=== PATIENT | male | born 1945 | race Caucasian/White ===

== ENCOUNTER 2017-02-26 08:53 | Inpatient (IN) | payer OTHER, MEDICAID ==
[~2017-02-26] VITALS: Ht 162.6 cm; Wt 65.3 kg
[~2017-02-26 08:53] MED LIST: ACET-2619 GT; DONE10TA10 PO; FOLI1TAB19 PO; MAGN400S60 PO; PANT40EC PO; SIMV10TA1 PO; TAMS0.4C96 PO; [UNRECOGNIZED DRUG - CODE] PO
--- NOTE | 2017-02-26 08:53 | NUR ---
Patient was BIBA and taken to bed 07 via gurney per EMS.
--- NOTE | 2017-02-26 08:58 | NUR ---
Dr. Lamas evaluating patient at bedside.
[2017-02-26] MEDS ORDERED: PANTOPRAZOLE 40 MG INJ VIAL IVP ONE (09:00)
[2017-02-26 09:01] VITALS: BP 119/65
--- NOTE | 2017-02-26 09:01 | NUR ---
72 yo male bib ems from [facility] for evaluation of coffee ground emesis on g tube feed, and dialysis awake and alert non verbal on arrival. AAOX4 ; LUNGS CLEAR BL; PATIENT STATES PAIN OF 0/10 AT THIS TIME; VSS; PATIENT POSITIONED FOR COMFORT; HOB ELEVATED; BEDRAILS UP X2; BED DOWN. ER MADE AWARE OF PT STATUS. Addendum: 02/26/17 at 1116 by MED1 PT HAS OLD SHUNT BOTH UPPER ARM, & SHUNT R THIGH.
--- NOTE | 2017-02-26 09:05 | NUR ---
OCEDURE WELL.PT HAS COOFEE GROUND FRONM G TUBE. LAVAGE G TUBE 500 CC UNTIL CLEAR. PT TOLERATED TX
[2017-02-26] MEDS ORDERED: VITA1TAB44 GT (09:16)
[2017-02-26] MEDS ORDERED: VITD1000 GT (09:16)
[2017-02-26] MEDS ORDERED: OMEP20TC10 GT (09:16)
--- NOTE | 2017-02-26 09:22 | NUR ---
LAB at bedside.
[2017-02-26] MEDS ORDERED: NACL 0.9% 500 ML IV ONE (09:35)
[2017-02-26 09:37] LABS: BASOPHILS % (AUTO) 0.3 % (0.0-2.0); EOSINOPHILS % (AUTO) 0.4 % (0.0-4.0); HEMATOCRIT 30.2 % (36-52); HEMOGLOBIN 10.3 g/dL (12.0-18.0); LYMPHOCYTES # (AUTO) 0.6 K/uL (2.0-11.5); LYMPHOCYTES % (AUTO) 5.4 % (20.5-51.1); MEAN CORPUSCULAR HEMOGLOBIN 33 pg (27-31); MEAN CORPUSCULAR HGB CONC 34 g/dL (33-37); MEAN CORPUSCULAR VOLUME 97 fL (80-94); MONOCYTES # (AUTO) 0.2 K/uL (0.8-1.0); NEUTROPHILS # (AUTO) 10.8 K/uL (1.8-7.7); PLATELET COUNT (AUTO) 257 K/uL (140-450); WHITE BLOOD COUNT (AUTO) 11.6 K/uL (4.8-10.8)
--- NOTE | 2017-02-26 09:46 | NUR ---
Patient taken to CT via jenelle izaguirre.
[2017-02-26 09:52] LABS: ALBUMIN 3.7 g/dL (3.4-5.0); AMYLASE 115 U/L (25-115); ANION GAP 13.1 (8-16); ASPARTATE AMINOTRANSFERASE 18 U/L (15-37); CARBON DIOXIDE 36.3 mmol/L (21-32); CHLORIDE 95 mmol/L (98-107); GLUCOSE 275 mg/dL (74-106); LIPASE 234 U/L (73-393); POTASSIUM 4.4 mmol/L (3.5-5.1); SODIUM SERUM 140 mmol/L (136-145); TOTAL BILIRUBIN 0.4 mg/dL (0.0-1.0); UREA NITROGEN, BLOOD 54 mg/dL (7-18)
--- NOTE | 2017-02-26 09:54 | NUR ---
Patient back from CT via [facility].
[2017-02-26 09:55] LABS: CREATININE 6.6 mg/dL (0.7-1.3)
[2017-02-26 09:59] LABS: NEUTROPHILS % (AUTO) 91.9 % (42.2-75.2)
--- NOTE | 2017-02-26 10:00 | NUR ---
STRAIT CATH NO URINE. NOTIFIED DR HUMPHREY.
[2017-02-26 10:01] LABS: PROTHROMBIN TIME 10.8 secs (10.8-13.4)
[2017-02-26] MEDS ORDERED: MORPHINE SULFATE 2 MG/ML SYR IVP PRN (10:50)
[2017-02-26] MEDS ORDERED: DOCUSATE SODIUM 100 MG GELCAP PO PRN (10:50)
[2017-02-26] MEDS ORDERED: ONDANSETRON 4 MG/2 ML VIAL IVP PRN (10:50)
[2017-02-26] MEDS ORDERED: HYDROcodone/APAP 5/325 MG 1 TAB TAB PO PRN (10:50)
[2017-02-26] MEDS ORDERED: ACETAMINOPHEN 325 MG TAB PO PRN (10:50)
[2017-02-26] MEDS ORDERED: HYDROcodone/APAP 5/325 MG 1 TAB TAB GT PRN (10:55)
[2017-02-26] MEDS ORDERED: ACETAMINOPHEN 325 MG TAB GT PRN (10:55)
--- NOTE | 2017-02-26 11:10 | NUR ---
Patient will be admitted to care of DR ARMENTA. Admited to TELE. Will go to room 116. Belongings list completed. Report to BJORN NICHOLSON.
--- NOTE | 2017-02-26 11:17 | NUR ---
RECEIVED TELEPHONE REPORT FROM ER NURSE EDNA. PT WILL GO TO ROOM 116. WILL GET ROOM READY AND AWAIT FOR PT ARRIVAL TO [facility].
[2017-02-26 11:24] LABS: ALBUMIN 3.7 g/dL (3.4-5.0); BILIRUBIN,DIRECT 0.1 mg/dL (0.0-0.3); FREE T4 (FREE THYROXINE) 1.12 ng/dL (0.76-1.46); MAGNESIUM 2.3 mg/dL (1.8-2.4); PHOSPHORUS 2.8 mg/dL (2.5-4.9); THYROID STIMULATING HORMONE 3.1 uIU/mL (0.34-3.74); TOTAL BILIRUBIN 0.4 mg/dL (0.0-1.0)
[2017-02-26] MEDS: NACL 0.9% 500 ML IV SCH (11:25)
[2017-02-26] MEDS ORDERED: DOCUSATE 100 MG/10 ML UDC PO PRN (11:40)
[2017-02-26] MEDS ORDERED: DEXTROSE 50% 50 ML SYR IVP PRN (11:40)
[2017-02-26] MEDS ORDERED: DOCUSATE 100 MG/10 ML UDC GT PRN (11:40)
[2017-02-26] MEDS ORDERED: ACETAMINOPHEN 650 MG/20.3 ML UDC GT PRN (11:55)
[2017-02-26 12:00] VITALS: BP 110/59
--- NOTE | 2017-02-26 12:00 | NUR ---
PT ARRIVED TO [facility] VIA GURNEY ACCOMPANIED BY RN AND TECH. TRANSFERRED PT TO BED. PT IS AWAKE AND ORIENTED. INTRODUCED SELF AND UPDATED BOARD. VS: BP 110/59 HR 84 RR 20 O2 SAT 98% O2 DELIVERY VIA NC 2L. TEMP 98.0. NO EMESIS NOTED. APPLIED ID BAND AND PUT PT ON TELE MONITOR. DR. CASTILLO CAME IN AND SAW PT IN ROOM. PT HAS NO COMPLAINTS AT THIS TIME WILL CONTINUE TO MONITOR.
[2017-02-26 16:00] VITALS: BP 123/64
--- NOTE | 2017-02-26 16:00 | NUR ---
CHECKED ON PT IN ROOM. PT RESTING IN BED. PT IS AAO X 4. CAN STATE OWN NAME. STATED THAT HE KNOWS HE IS AT [facility]. PT STATED THAT HE CAME FROM A [facility] IN [place] BUT FORGETS THE NAME OF THE PLACE. ABLE TO STATE THAT TODAY IS FRIDAY AND THE YEAR IS 2016. PT ALSO STATED THAT HE RECEIVED THE FLU VACCINE AND PNA VACCINE THIS YEAR. NO EMESIS NOTED, PT DENIES ANY PAIN. IV IS ON RIGHT HAND 22G NS @10ML/HR. SKIN IN INTACT. DRYNESS OF SKIN SEEN ON PT'S BACK AND FEET. PT HAS NO COMPLAINTS AT THIS TIME. WILL CONTINUE TO MONITOR.
[2017-02-26] MEDS: BLOOD GLUCOSE MONITORING 1 DEV DEV FS SCH ×2 (16:30→20:32)
--- NOTE | 2017-02-26 17:00 | NUR ---
PT HAS HD FISTULA ON RIGHT AND LEFT UPPER ARM. PER PT. STATED THAT RIGHT UPPER ARM IS NO GOOD AND THAT LEFT UPPER ARM IS WHERE HD IS ACCESSED AND GOOD SITE.
[2017-02-26] MEDS: METOCLOPRAMIDE 10 MG/10 ML SYRP UDC GT SCH (17:58)
[2017-02-26] MEDS: INSULIN LISPRO SLIDING SCALE 100 UNITS/ML VIAL SUBQ PRN (18:07)
--- NOTE | 2017-02-26 19:25 | NUR ---
ENDORSED PT TO SUPPLY OFFICER NURSE AT BEDSIDE FOR CONTINUITY OF CARE. PT IS AWAKE AND ORIENTED RESTING COMFORTABLY IN BED. PT IN STABLE CONDITION.
--- NOTE | 2017-02-26 19:26 | NUR ---
RECEIVED PATIENT REPORT AT BEDSIDE FROM MORNING NURSE. PATIENT IS AWAKE AND ALERT, RESTING COMFORTABLY IN BED. NO SIGNS AND SYMPTOMS OF DISTRESS NOTED. NO COMPLAINTS OF PAIN AT THIS TIME. PATIENT ON O2 2L VIA NC. FISTULA NOTED IN LEFT AND RIGHT UPPER ARM. PATIENT STATES THAT THE FISTULA ON RIGHT ARM IS NO GOOD AND THAT HEMODIALYSIS IS DONE ON LEFT ARM. G-TUBE IN PLACE. PICC LINE ON RIGHT LEG NOTED, WRAPPED IN GAUZE. BED IN LOWEST POSITION, SIDE RAILS UP AND CALL LIGHT WITHIN REACH. WILL CONTINUE TO MONITOR. Addendum: 02/26/17 at 2220 by Vladimir Negrete RN NO PICC LINE ON RIGHT LEG. IT IS ACCESS FOR HEMODIALYSIS ON RIGHT THIGH, WRAPPED IN GAUZE.
[2017-02-26 20:00] VITALS: BP 109/46
[2017-02-26] MEDS: PANTOPRAZOLE 40 MG INJ VIAL IVP SCH (20:26)
[2017-02-26] MEDS: SIMVASTATIN 10 MG TAB GT SCH (20:31)
--- NOTE | 2017-02-26 23:00 | NUR ---
CHECKED ON PATIENT, PATIENT IS ASLEEP. NO SIGNS AND SYMPTOMS OF DISTRESS NOTED. BED IN LOWEST POSITION, SIDE RAILS UP AND CALL LIGHT WITHIN REACH.
[2017-02-27] VITALS: BP 123/75
[2017-02-27 03:46] VITALS: BP 140/80
[2017-02-27] MEDS ORDERED: LANSOPRAZOLE 30 MG CAPDR GT SCH (06:30)
[2017-02-27] MEDS: BLOOD GLUCOSE MONITORING 1 DEV DEV FS SCH ×4 (06:30→21:22)
[2017-02-27] MEDS: METOCLOPRAMIDE 10 MG/10 ML SYRP UDC GT SCH ×3 (06:32→16:30)
[2017-02-27] MEDS: INSULIN LISPRO SLIDING SCALE 100 UNITS/ML VIAL SUBQ PRN ×3 (06:37→21:30)
[2017-02-27 06:45] LABS: BASOPHILS % (AUTO) 0.5 % (0.0-2.0); EOSINOPHILS # (AUTO) 0.1 K/uL (0-0.4); EOSINOPHILS % (AUTO) 0.9 % (0.0-4.0); HEMATOCRIT 28.2 % (36-52); HEMOGLOBIN 9.4 g/dL (12.0-18.0); LYMPHOCYTES # (AUTO) 1.4 K/uL (2.0-11.5); LYMPHOCYTES % (AUTO) 14.5 % (20.5-51.1); MEAN CORPUSCULAR HEMOGLOBIN 32 pg (27-31); MEAN CORPUSCULAR HGB CONC 33 g/dL (33-37); MEAN CORPUSCULAR VOLUME 97 fL (80-94); MONOCYTES # (AUTO) 0.6 K/uL (0.8-1.0); MONOCYTES % (AUTO) 5.9 % (1.7-9.3); NEUTROPHILS # (AUTO) 7.8 K/uL (1.8-7.7); NEUTROPHILS % (AUTO) 78.2 % (42.2-75.2); PLATELET COUNT (AUTO) 248 K/uL (140-450); RED CELL DISTRIBUTION WIDTH 12.5 % (11.6-13.7); WHITE BLOOD COUNT (AUTO) 9.9 K/uL (4.8-10.8)
[2017-02-27 07:24] LABS: ANION GAP 12.8 (8-16); CARBON DIOXIDE 34.4 mmol/L (21-32); CHLORIDE 98 mmol/L (98-107); GLUCOSE 193 mg/dL (74-106); POTASSIUM 4.2 mmol/L (3.5-5.1); SODIUM SERUM 141 mmol/L (136-145)
[2017-02-27 07:33] LABS: CREATININE 8.3 mg/dL (0.7-1.3); UREA NITROGEN, BLOOD 66 mg/dL (7-18)
--- NOTE | 2017-02-27 07:37 | NUR ---
PATIENT REPORT GIVEN TO MORNING NURSE. PATIENT IN STABLE CONDITION
--- NOTE | 2017-02-27 07:38 | NUR ---
RECEIVED REPORT FROM PER DIEM PHYSICAL THERAPIST ASSISTANT NURSE AT BEDSIDE FOR CONTINUITY OF CARE. PT IS AWAKE AND ORIENTED. DR. HITCHCOCK'S RESIDENTS CAME IN AND SAW PT. REPORTED CRITICAL LAB VALUE BUN 66 AND CREATININE 8.[address] ELY. DISCUSSED PLAN WITH PT. PT VERBALIZED UNDERSTANDING. PT IS RESTING IN BED RIGHT NOW. IV IS ON RIGHT HAND 22G NS@10ML/HR. NO COMPLAINTS AT THIS TIME WILL CONTINUE TO MONITOR.
[2017-02-27 08:00] VITALS: BP 119/54
[2017-02-27] MEDS: TAMSULOSIN 0.4 MG CAP GT SCH (08:02)
[2017-02-27] MEDS: CHOLECALCIFEROL 1,000 IU TAB GT SCH (08:02)
[2017-02-27] MEDS: VIT-B COMP/VIT-C/FOLIC ACID 1 TAB GT SCH (08:03)
[2017-02-27] MEDS: PANTOPRAZOLE 40 MG INJ VIAL IVP SCH ×2 (08:03→21:14)
[2017-02-27] MEDS: FOLIC ACID 1 MG TAB GT SCH (08:03)
[2017-02-27] MEDS ORDERED: PANTOPRAZOLE 40 MG TABEC PO SCH (09:00)
[2017-02-27 09:10] LABS: TRANSFERRIN 243 mg/dL (200-370)
--- NOTE | 2017-02-27 10:12 | NUR ---
CALLED SULLY MULLEN FOR DIALYSIS ORDER AND MADE AWARE.
[2017-02-27] MEDS: NACL 0.9% 500 ML IV SCH (11:25)
[2017-02-27 12:00] VITALS: BP 100/58
[2017-02-27] MEDS ORDERED: MIDAZOLAM 2 MG/2 ML VIAL ONE (12:02)
[2017-02-27] MEDS ORDERED: diphenhydrAMINE 50 MG/ML VIAL ONE (12:02)
[2017-02-27] MEDS ORDERED: fentaNYL 0.05 MG/ML VIAL ONE (12:02)
--- NOTE | 2017-02-27 13:40 | NUR ---
PT ARRIVED TO UNIT FROM GI LAB ACCOMPANIED BY RNS. PT VS: TEMP 97.1 BP 100/58 HR 90 O2 SAT 97% ON ROOM AIR RR 18. PT IN STABLE CONDITION.
[2017-02-27] MEDS ORDERED: fentaNYL 0.05 MG/ML VIAL IVP ONE (14:00)
[2017-02-27] MEDS ORDERED: diphenhydrAMINE 50 MG/ML VIAL IVP ONE (14:00)
[2017-02-27] MEDS ORDERED: MIDAZOLAM 2 MG/2 ML VIAL IVP ONE (14:00)
[2017-02-27 16:00] VITALS: BP 122/65
--- NOTE | 2017-02-27 17:00 | NUR ---
CALLED DR. DUTTA AND REPORTED THAT HEMODIALYSIS NURSE UNABLE TO REACH ORDER OF 2L DIALYSIS. STATED OK FOR 1L OF FLUID. PT IS IN ROOM GETTING HD DONE BY NURSE.
--- NOTE | 2017-02-27 19:00 | NUR ---
HEMODIALYSIS DONE. REPORT GIVEN BY HD NURSE ONLY 507ML DIALYSIS DONE. PT IS RESTING COMFORTABLY IN BED.
--- NOTE | 2017-02-27 19:10 | NUR ---
ENDORSED PT TO MACHINE PRECISION ENGRAVER NURSE AT BEDSIDE FOR CONTINUITY OF CARE. PT IS AWAKE AND ORIENTED AND IN STABLE CONDITION.
--- NOTE | 2017-02-27 19:11 | NUR ---
RECEIVED PATIENT REPORT AT BEDSIDE FROM MORNING NURSE. PATIENT IS AWAKE AND ALERT, RESTING COMFORTABLY IN BED. NO SIGNS AND SYMPTOMS OF DISTRESS NOTED. NO COMPLAINTS OF PAIN AT THIS TIME. PATIENT ON O2 2L VIA NC. FISTULA NOTED IN LEFT AND RIGHT UPPER ARM. G-TUBE IN PLACE. DIALYSIS ACCESS NOTED ON RIGHT THIGH, WRAPPED IN GAUZE. BED IN LOWEST POSITION, SIDE RAILS UP AND CALL LIGHT WITHIN REACH. WILL CONTINUE TO MONITOR.
[2017-02-27 20:00] VITALS: BP 107/57
[2017-02-27] MEDS: SIMVASTATIN 10 MG TAB GT SCH (21:14)
--- NOTE | 2017-02-27 22:27 | NUR ---
RECEIVED HEART RHYTHM STRIP FROM DRAPERY SUPERVISOR OF PATIENT'S STRIP READING 2ND DEGREE BLOCK, GELY 2. NOTIFIED DR. TOPETE ABOUT PATIENT'S HEART RHYTHM. PUT IN ORDERS Addendum: 02/28/17 at 0124 by Vladimir Negrete RN DRAPERY SUPERVISOR ELE INFORMED ME THAT IT WAS ACTUALLY GELY I NOT GELY II
--- NOTE | 2017-02-27 23:00 | NUR ---
EKG DONE. RESULTS SHOW SR WITH 2ND DEGREE AV BLOCK (MOBITZ 1) WITH 2:[address] TOPETE NOTIFIED OF RESULTS
[2017-02-28] VITALS: BP 128/56
--- NOTE | 2017-02-28 | NUR ---
CHECKED ON PATIENT. PATIENT IS ASLEEP IN BED. NO SIGNS AND SYMPTOMS OF DISTRESS NOTED. BREATHING EVEN AND UNLABORED. BED IN LOWEST POSITION, SIDE RAILS UP AND CALL LIGHT WITHIN REACH
[2017-02-28 04:00] VITALS: BP 104/54
[2017-02-28 06:15] LABS: FOLIC ACID > 20.00 ng/mL (>3.0)
[2017-02-28 06:16] LABS: BASOPHILS # (AUTO) 0.1 K/uL (0.00-0.22); BASOPHILS % (AUTO) 0.9 % (0.0-2.0); EOSINOPHILS # (AUTO) 0.1 K/uL (0-0.4); EOSINOPHILS % (AUTO) 1.6 % (0.0-4.0); HEMATOCRIT 24.7 % (36-52); HEMOGLOBIN 8.5 g/dL (12.0-18.0); LYMPHOCYTES # (AUTO) 1.6 K/uL (2.0-11.5); LYMPHOCYTES % (AUTO) 22.5 % (20.5-51.1); MEAN CORPUSCULAR HEMOGLOBIN 34 pg (27-31); MEAN CORPUSCULAR HGB CONC 35 g/dL (33-37); MEAN CORPUSCULAR VOLUME 97 fL (80-94); MONOCYTES # (AUTO) 0.6 K/uL (0.8-1.0); MONOCYTES % (AUTO) 8.5 % (1.7-9.3); NEUTROPHILS # (AUTO) 4.7 K/uL (1.8-7.7); NEUTROPHILS % (AUTO) 66.5 % (42.2-75.2); PLATELET COUNT (AUTO) 204 K/uL (140-450); RED BLOOD CELL COUNT(AUTO) 2.54 MIL/uL (4.20-6.10); RED CELL DISTRIBUTION WIDTH 12.6 % (11.6-13.7); WHITE BLOOD COUNT (AUTO) 7.1 K/uL (4.8-10.8)
[2017-02-28] MEDS: BLOOD GLUCOSE MONITORING 1 DEV DEV FS SCH ×3 (06:33→16:42)
[2017-02-28] MEDS: METOCLOPRAMIDE 10 MG/10 ML SYRP UDC GT SCH ×3 (06:40→16:02)
[2017-02-28 06:58] LABS: ANION GAP 11.8 (8-16); CARBON DIOXIDE 31.6 mmol/L (21-32); CHLORIDE 104 mmol/L (98-107); GLUCOSE 134 mg/dL (74-106); POTASSIUM 3.4 mmol/L (3.5-5.1); SODIUM SERUM 144 mmol/L (136-145); UREA NITROGEN, BLOOD 31 mg/dL (7-18)
--- NOTE | 2017-02-28 07:22 | NUR ---
RECEIVED REPORT FROM PM NURSE AT BEDSIDE, PT ALERT AWAKE AND ORIENTED. NO SIGN OF SYMPTOMS OF DISTRESS NOTED, NO COMPLAIN OF PAIN AT THIS TIME. WILL CONTINUE TO MONITOR.
--- NOTE | 2017-02-28 07:22 | NUR ---
REPORT GIVEN AT BEDSIDE TO MORNING NURSE. PATIENT IN STABLE CONDITION
[2017-02-28 07:26] LABS: CREATININE 5.4 mg/dL (0.7-1.3)
[2017-02-28 07:59] VITALS: BP 109/54
[2017-02-28] MEDS: VIT-B COMP/VIT-C/FOLIC ACID 1 TAB GT SCH (08:50)
[2017-02-28] MEDS: PANTOPRAZOLE 40 MG INJ VIAL IVP SCH (08:50)
[2017-02-28] MEDS: TAMSULOSIN 0.4 MG CAP GT SCH (08:50)
[2017-02-28] MEDS: FOLIC ACID 1 MG TAB GT SCH (08:51)
[2017-02-28] MEDS: CHOLECALCIFEROL 1,000 IU TAB GT SCH (08:51)
--- NOTE | 2017-02-28 09:15 | NUR ---
PT RESTING, NO DISTRESS NOTED, CALL LIGHT WITHIN REACH, WILL CONTINUE TO MONITOR.
--- NOTE | 2017-02-28 11:30 | NUR ---
PT RESTING, NO DISTRESS NOTED, NO SIGN AND SYMPTOM OF DISTRESS, CALL LIGHT WITHIN REACH.
[2017-02-28] MEDS ORDERED: METO-485 PO (11:57)
[2017-02-28] MEDS ORDERED: OMEP20TC10 PO (11:57)
[2017-02-28 12:00] VITALS: BP 147/100
[2017-02-28] MEDS: INSULIN LISPRO SLIDING SCALE 100 UNITS/ML VIAL SUBQ PRN (12:26)
[2017-02-28] MEDS: NACL 0.9% 500 ML IV SCH (12:28)
--- NOTE | 2017-02-28 13:25 | NUR ---
CM NOTE SPOKE WITH AUSTIN OF [facility] PH# [phone] AND SHE SAID PATIENT CAN GO BACK TO [address] WHEN DISCHARGED, DR. MICHAEL THORNTON IS PATIENT'S DOCTOR THERE, NUMBER TO CALL FOR REPORT PH# [phone]. SPOKE WITH GLENN TO SET UP PATIENT TRANSPORT [facility] 1730 TODAY BY MARY GOING TO [facility] [address]. NURSE ERYN LAYNE. Addendum: 02/28/17 at 1358 by Valerie Sutherland CM CHARGE NURSE MODESTO LAYNE
[2017-02-28] MEDS ORDERED: METO-485 GT (14:25)
[2017-02-28] MEDS ORDERED: OMEP20TC10 GT (14:25)
[2017-02-28] MEDS ORDERED: POTASSIUM CHLORIDE 10 MEQ TABER PO SCH (14:30)
--- NOTE | 2017-02-28 14:50 | NUR ---
PT RESTING, NO DISTRESS NOTED, CALL LIGHT WITHIN REACH, WILL CONTINUE TO MONITOR
--- NOTE | 2017-02-28 15:30 | NUR ---
GAVE REPORT TO [facility] NURSE DMITRY
[2017-02-28] MEDS ORDERED: CHLO118S2 TP (15:37)
[2017-02-28] MEDS ORDERED: BACTO TP (15:37)
[2017-02-28 16:00] VITALS: BP 110/89
--- NOTE | 2017-02-28 16:02 | NUR ---
MEDICATION GIVEN PER DR OR PO, PT TOLERATED WELL, CALL LIGHT WITHIN REACH, WILL CONTINUE TO MONITOR. Addendum: 02/28/17 at 1657 by Wendy Reilly RN PER MD DECKER
[2017-02-28] MEDS ORDERED: CHLORHEXADINE GLUC 2% CLOTH TP SCH (16:30)
[2017-02-28] MEDS ORDERED: MUPIROCIN 2% OINT 22 GM TUBE TP SCH (17:00)
--- NOTE | 2017-02-28 18:41 | NUR ---
PT HAD BM EMMY CARE GIVEN, PT STABLE
--- NOTE | 2017-02-28 18:58 | NUR ---
DISCHARGE INSTRUCTION GIVEN, PT TRANSFERRED [facility] AMBUL[facility], PT PICKED UP BY [facility], IV TAKEN OFF, CATHETER INTACT, WRISTBAND TAKEN OFF, PT STABLE. PT HAS ALL BELONGING AND DISCHARGE PAPERS.
== END 2017-02-28 19:02 | disposition home or self-care (01) | DRG 391 ==
LOC: MED 08:53 → MTU 11:02
PROVIDERS: ADMIT Student in an Organized Health Care Education/Training Program; ATTEND Student in an Organized Health Care Education/Training Program
PROC: 0D758ZZ Dilation of Esophagus, Via Natural or Artificial Opening Endoscopic (ICD-10-PCS; principal; 2017-02-27 12:30)
DX: K22.2 Esophageal obstruction (principal); N17.0 Acute kidney failure with tubular necrosis; I12.0 Hypertensive chronic kidney disease with stage 5 chronic kidney disease or end stage renal disease; E11.22 Type 2 diabetes mellitus with diabetic chronic kidney disease; I44.1 Atrioventricular block, second degree; N18.6 End stage renal disease; K92.2 Gastrointestinal hemorrhage, unspecified; E11.51 Type 2 diabetes mellitus with diabetic peripheral angiopathy without gangrene; K21.0 Gastro-esophageal reflux disease with esophagitis; N40.0 Benign prostatic hyperplasia without lower urinary tract symptoms; E87.6 Hypokalemia; E11.65 Type 2 diabetes mellitus with hyperglycemia; D63.1 Anemia in chronic kidney disease; G30.9 Alzheimer's disease, unspecified; F02.80 Dementia in other diseases classified elsewhere, unspecified severity, without behavioral disturbance, psychotic disturbance, mood disturbance, and anxiety; R13.10 Dysphagia, unspecified; D64.9 Anemia, unspecified; E78.5 Hyperlipidemia, unspecified; F32.9 Major depressive disorder, single episode, unspecified; K80.20 Calculus of gallbladder without cholecystitis without obstruction; Z90.49 Acquired absence of other specified parts of digestive tract; Z99.2 Dependence on renal dialysis; Z93.1 Gastrostomy status
CPT/HCPCS: 36415; 80048; 80053; 80076; 82140; 82150; 82607; 82746; 82948; 83036; 83540; 83615; 83690; 83735; 83880; 84100; 84439; 84443; 84484; 85025; 85045; 85610; 85730; 86886; 86900; 86901; 87081; 90935; 93005; 93925; 93970; 96361; 96374; 99285; C1727; C1758; C9113; J1200; J1815; J2250; J3010; J7030; J8597; Q0092

== ENCOUNTER 2017-06-09 17:50 | Inpatient (IN) | payer OTHER, MEDICAID ==
[~2017-06-09] VITALS: Ht 165.1 cm; Wt 68.0 kg
[~2017-06-09 17:50] MED LIST changes: +BACTO TP; +CHLO118S2 TP; -DONE10TA10 PO; +METO-485 GT; +OMEP20TC10 GT; -PANT40EC PO; +VITA1TAB44 GT; +VITD1000 GT; -[UNRECOGNIZED DRUG - CODE] PO
[2017-06-09 17:51] VITALS: BP 99/73
--- NOTE | 2017-06-09 18:05 | NUR ---
PATIENT PRESENTS TO ED WITH LEFT SHOULDER MASS X "YRS" . BROUGHT IN BY EMS FROM [facility] FOR CT OF SHOULDER . DENIES N/V/D; SKIN IS PINK/WARM/DRY; AAOX4 WITH EVEN AND STEADY GAIT; LUNGS CLEAR BL; HR EVEN AND REGULAR; PT DENIES ANY FEVER, CP, SOB, OR COUGH AT THIS TIME; PATIENT STATES PAIN OF 0/10 AT THIS TIME; VSS; PATIENT POSITIONED FOR COMFORT; HOB ELEVATED; BEDRAILS UP X2; BED DOWN. ER MD MADE AWARE OF PT STATUS.
[2017-06-09] MEDS ORDERED: DOCU-299 PO (18:20)
[2017-06-09] MEDS ORDERED: DONE10TA10 PO (18:20)
[2017-06-09] MEDS ORDERED: FOLI1TAB89 PO (18:20)
--- NOTE | 2017-06-09 19:50 | NUR ---
PT RESTING IN BED AT THIS TIME. HOB ELEVATED. A&OX4. VSS. NO C/O PAIN OR RESPIRATORY DISTRESS. VERBAL AND ABLE TO MAKE NEEDS KNOWN. PT PLACED IN POC. MD AWARE. CONTINUE TO MONITOR.
--- NOTE | 2017-06-09 20:11 | NUR ---
PT CONTINUES TO REST COFORTABLY. ORIENTED TO NAME AND . HR VARIATION BETWEEN 53 AND 76. 12 LEAD ECG COMPLETED. MD NOTIFIED. CONTINUE TO MONITOR.
[2017-06-09 20:44] LABS: BASOPHILS # (AUTO) 0.1 K/uL (0.00-0.22); EOSINOPHILS # (AUTO) 0.4 K/uL (0-0.4); EOSINOPHILS % (AUTO) 6.2 % (0.0-4.0); HEMOGLOBIN 11.1 g/dL (12.0-18.0); LYMPHOCYTES # (AUTO) 1.4 K/uL (2.0-11.5); LYMPHOCYTES % (AUTO) 19.6 % (20.5-51.1); MEAN CORPUSCULAR HEMOGLOBIN 32 pg (27-31); MEAN CORPUSCULAR HGB CONC 34 g/dL (33-37); MEAN CORPUSCULAR VOLUME 94 fL (80-94); MONOCYTES # (AUTO) 0.5 K/uL (0.8-1.0); MONOCYTES % (AUTO) 6.4 % (1.7-9.3); NEUTROPHILS # (AUTO) 4.7 K/uL (1.8-7.7); NEUTROPHILS % (AUTO) 66.8 % (42.2-75.2); PLATELET COUNT (AUTO) 287 K/uL (140-450); RED BLOOD CELL COUNT(AUTO) 3.51 MIL/uL (4.20-6.10); RED CELL DISTRIBUTION WIDTH 13.7 % (11.6-13.7); WHITE BLOOD COUNT (AUTO) 7.1 K/uL (4.8-10.8)
[2017-06-09 20:54] LABS: ANION GAP 13.7 (8-16); CHLORIDE 100 mmol/L (98-107); GLUCOSE 110 mg/dL (74-106); POTASSIUM 4.7 mmol/L (3.5-5.1); SODIUM SERUM 141 mmol/L (136-145); UREA NITROGEN, BLOOD 52 mg/dL (7-18)
[2017-06-09 20:58] LABS: CREATININE 9.1 mg/dL (0.7-1.3)
[2017-06-09 21:00] LABS: ALBUMIN 3.4 g/dL (3.4-5.0); ASPARTATE AMINOTRANSFERASE 19 U/L (15-37); TOTAL BILIRUBIN 0.3 mg/dL (0.0-1.0)
[2017-06-09 21:14] LABS: PROTHROMBIN TIME 10.4 secs (10.8-13.4)
[2017-06-09] MEDS ORDERED: ONDANSETRON 4 MG/2 ML VIAL IVP PRN (21:15)
[2017-06-09] MEDS ORDERED: HYDROcodone/APAP 7.5/325 MG 1 TAB PO PRN (21:15)
[2017-06-09] MEDS ORDERED: ACETAMINOPHEN 325 MG TAB PO PRN (21:15)
--- NOTE | 2017-06-09 21:43 | NUR ---
PT IN BED RESITING COMFORTABLY IN POC. PREPOSITIONED IN BED. HOB ELEVATED. PT DENIES CHEST PAIN, SOB, OR OTHER DISTRESSS. VSS STABLE AT THIS TIME. CONTINUE TO MONITOR.
[2017-06-09 22:20] LABS: CHOL/HDL RATIO 2.5 (1-4.5); FREE T4 (FREE THYROXINE) 1.05 ng/dL (0.76-1.46); MAGNESIUM 2.4 mg/dL (1.8-2.4); PHOSPHORUS 5.3 mg/dL (2.5-4.9); THYROID STIMULATING HORMONE 1.97 uIU/mL (0.34-3.74)
--- NOTE | 2017-06-09 22:50 | NUR ---
UPON ADMISION TO ROOM 106A TELE, PT HAD IV PLACED IN RIGHT AC. IV FLUSHED AND PATENT
[2017-06-09 23:00] VITALS: BP 111/47
--- NOTE | 2017-06-09 23:00 | NUR ---
RECEIVED PT FROM ER VIA MARY PT IS AAAOX2 FOLLOW COMMANDS PT VERBALIZED UNABLE TO WALK BLE WEAKNESS LEFT SHOULDER A MASS 10 CM ROUND SOFT TISSUE SCAR ON SACRUM, G TUBE IN PLACE ZERO RESIFUAL ON TELEMETRY SR/SB SECOND BLOCK, HL ON RT AC GAUGE 22 PT IS ORIENTED TO THE FLOOR CALL LIGHT WITHIN REACH INITIAL ASSESSMENT DONE.
--- NOTE | 2017-06-09 23:59 | NUR ---
Patient to be transferred to ROOM 106A TELE. Is being transferred due to LEFT SHOULDER MASS. ADMITTING PHYSICIAN SANDRITA. ER physician has signed transfer form. Patient or responsible republican has agreed to transfer and signed form. Patient belongings inventoried and will be sent with patient. Copy of nursing notes, lab reports, EKG, Physicians Orders and X-rays to be sent with patient. PT TANSFERED WITH VSS.
[2017-06-10] VITALS: BP 113/50
[2017-06-10] MEDS ORDERED: ECOTRIN 81 MG TABEC PO SCH (00:15)
[2017-06-10] MEDS ORDERED: INSULIN LISPRO SLIDING SCALE 100 UNITS/ML VIAL SUBQ PRN (00:15)
[2017-06-10] MEDS ORDERED: DEXTROSE 50% 50 ML SYR IVP PRN (00:15)
[2017-06-10] MEDS: FAMOTIDINE 20 MG/2 ML VIAL IV SCH ×2 (00:56→23:51)
--- NOTE | 2017-06-10 02:00 | NUR ---
PT SLEEPING WELL NOT DISTRESS NOTED REPOSITIONED Q2H
--- NOTE | 2017-06-10 03:40 | NUR ---
PT ON TELEMETRY SB SECOND DEGREE AV BLOCK DENIES ANY PAIN, REPOSITIONED Q2H
[2017-06-10 04:00] VITALS: BP 117/43
--- NOTE | 2017-06-10 05:03 | NUR ---
PT RESTING ON BED NOT DISTRESS NOTED ON TELEMETRY SB SECOND DEGREE AV BLOCK,REPOSITIONED Q2H
[2017-06-10] MEDS: METOCLOPRAMIDE 10 MG/10 ML SYRP UDC GT SCH ×2 (05:48→16:10)
[2017-06-10] MEDS: BLOOD GLUCOSE MONITORING 1 DEV DEV FS SCH ×4 (06:48→21:52)
--- NOTE | 2017-06-10 06:52 | NUR ---
PT AAOX2 COOPERATIVE NOT DISTRESS NOTED PT WILL BE ENDORSED TO DAY SHIFT NURSE FOR CONTINUITY OF CARE
--- NOTE | 2017-06-10 07:26 | NUR ---
RECEIVED PT IN BED. AWAKE. ALERT ORIENTEDX2. NO SOB NOTED. DENIES ANY PAIN OR DISCOMFORT AT THIS TIME. SAFETY PRECAUTION IN PLACE. CALL LIGHT WITHIN REACH.PT BEDBOUND.
[2017-06-10] MEDS ORDERED: METOCLOPRAMIDE 10 MG/10 ML SYRP UDC GT SCH (07:30)
[2017-06-10 07:31] LABS: BASOPHILS % (AUTO) 0.7 % (0.0-2.0); EOSINOPHILS # (AUTO) 0.5 K/uL (0-0.4); EOSINOPHILS % (AUTO) 6.8 % (0.0-4.0); HEMATOCRIT 31.9 % (36-52); HEMOGLOBIN 10.8 g/dL (12.0-18.0); LYMPHOCYTES # (AUTO) 1.6 K/uL (2.0-11.5); LYMPHOCYTES % (AUTO) 22.9 % (20.5-51.1); MEAN CORPUSCULAR HEMOGLOBIN 32 pg (27-31); MEAN CORPUSCULAR HGB CONC 34 g/dL (33-37); MEAN CORPUSCULAR VOLUME 94 fL (80-94); MONOCYTES # (AUTO) 0.5 K/uL (0.8-1.0); MONOCYTES % (AUTO) 7.4 % (1.7-9.3); NEUTROPHILS # (AUTO) 4.2 K/uL (1.8-7.7); NEUTROPHILS % (AUTO) 62.2 % (42.2-75.2); PLATELET COUNT (AUTO) 253 K/uL (140-450); RED BLOOD CELL COUNT(AUTO) 3.39 MIL/uL (4.20-6.10); RED CELL DISTRIBUTION WIDTH 13.8 % (11.6-13.7); WHITE BLOOD COUNT (AUTO) 6.8 K/uL (4.8-10.8)
[2017-06-10 07:55] VITALS: BP 123/63
--- NOTE | 2017-06-10 08:30 | NUR ---
DR. ELY MADE AWARE OF LATEST BLOOD SUGAR AND PT ON NPO EXCEPT MED WITH NEW ORDERS MADE AND CARRIED OUT.
[2017-06-10] MEDS ORDERED: DEXTROSE 50% 50 ML SYR IVP SCH (08:49)
[2017-06-10 08:57] LABS: CARBON DIOXIDE 31.5 mmol/L (21-32); CHLORIDE 101 mmol/L (98-107); GLUCOSE 104 mg/dL (74-106); POTASSIUM 4.5 mmol/L (3.5-5.1); SODIUM SERUM 142 mmol/L (136-145); UREA NITROGEN, BLOOD 55 mg/dL (7-18)
[2017-06-10] MEDS ORDERED: FOLIC ACID 1 MG TAB PO SCH (09:00)
[2017-06-10] MEDS: VIT-B COMP/VIT-C/FOLIC ACID 1 TAB GT SCH (09:15)
[2017-06-10] MEDS: FOLIC ACID 1 MG TAB PO SCH ×2 (09:15→21:53)
[2017-06-10] MEDS: TAMSULOSIN 0.4 MG CAP PO SCH (09:15)
[2017-06-10] MEDS: DOCUSATE SODIUM 100 MG GELCAP PO SCH ×2 (09:15→21:53)
[2017-06-10] MEDS: CHOLECALCIFEROL 1,000 IU TAB GT SCH (09:15)
[2017-06-10 09:19] LABS: CREATININE 9.5 mg/dL (0.7-1.3)
[2017-06-10 09:21] LABS: MAGNESIUM 2.4 mg/dL (1.8-2.4); PHOSPHORUS 5.1 mg/dL (2.5-4.9)
--- NOTE | 2017-06-10 09:21 | NUR ---
PATIENT HAS BEEN SCREENED AND CATEGORIZED HIGH NUTRITION RISK. PATIENT WILL BE SEEN WITHIN 1-2 DAYS OF ADMISSION. 06/09/17-06/10/[address]
--- NOTE | 2017-06-10 09:27 | NUR ---
CALLED [facility] REGARDING DIALYSIS ORDER, AND MADE AWARE.
[2017-06-10 12:00] VITALS: BP_SYST 130; BP_SYST 132; BP_DIAS 52; BP_DIAS 77
--- NOTE | 2017-06-10 14:33 | NUR ---
PLEASE REFER TO NUTRITION ASSESSMENT UNDER CARE ACTIVITY FOR ESTIMATED NUTRITIONAL NEEDS. 1.TO CONTINUE NPO STATUS UNTIL MEDICALL APPROPRIATE TO RESUME TUBE FEED/PO INTAKE. 2.ADVANCE DIET TOLERATED TO PREVIOUS DIET OF PUREE/TUBE FEED. RD TO FOLLOW-UP IN 2-3 DAYS PATIENT IS HIGH RISK. TESHA HERNANDEZ RD
--- NOTE | 2017-06-10 15:10 | NUR ---
SULLY, DIALYSIS NURSE, CAME TO SEE PT FOR THE DIALYSIS PROCEDURE. PT NO SOB NOTED. DENIES ANY PAIN OR DISCOMFORT AT THIS TIME.
[2017-06-10] MEDS ORDERED: CALCIUM ACETATE 667 MG TAB PO SCH (15:29)
--- NOTE | 2017-06-10 15:49 | NUR ---
SPECIMEN FOR URINE CULTURE NOT OBTAINED DUE TO PT ON DIALYSIS AND THERE IS NO URINE OUTPUT. DR. ELY MADE AWARE.
[2017-06-10 16:00] VITALS: BP 80/51
--- NOTE | 2017-06-10 18:07 | NUR ---
DIALYSIS JUST FINISHED WITH 0 OUTPUT DUE TO PT'S BLOOD PRESSURE DROPPING. VITAL SIGNS TAKEN AND RECORDED.
[2017-06-10 18:08] VITALS: BP 91/58
--- NOTE | 2017-06-10 18:21 | NUR ---
PT KEPT CLEAN, DRY AND COMFORTABLE, NEEDS ATTENDED. WILL ENDORSE TO NEXT SHIFT. PT ON STABLE CONDITION. TOLERATED HIS RENAL DIET WELL. NO SOB NOTED. DENIES ANY PAIN OR DISCOMFORT AT THIS TIME.
--- NOTE | 2017-06-10 19:00 | NUR ---
PT RESTING ON BED S/P DIALYSIS ON RT FEMORAL ZERO OUTPUT ACCORDING TO THE REPORT ON TELEMETRY SR 1 AV BLOCK POOR ORAL TOLERATION G TUBE PATENT ZERO RESIDUAL HL ON RT AC PATENT INITIAL ASSESSMENT DONE
[2017-06-10] MEDS ORDERED: SIMVASTATIN 10 MG TAB PO SCH (21:00)
[2017-06-10] MEDS ORDERED: DONEPEZIL 10 MG TAB PO SCH (21:00)
--- NOTE | 2017-06-10 22:00 | NUR ---
SPONGE BATH GIVEN LINEN CHANGED PT IS NOT TOLERATING WELL ORAL FLUID PT IS TRANFER TO MED SURG
[2017-06-11] VITALS: BP 135/69
--- NOTE | 2017-06-11 01:15 | NUR ---
PT REPOSITIONED AND NOT DISTRESS NOTED PT GETTING SLEEP
[2017-06-11 04:00] VITALS: BP 112/65
--- NOTE | 2017-06-11 04:00 | NUR ---
SPONGE BATH GIVEN LINEN CHANGED REPOSITIONED Q2H NOT DISTRESS NOTED
[2017-06-11] MEDS: METOCLOPRAMIDE 10 MG/10 ML SYRP UDC GT SCH ×2 (05:56→16:21)
[2017-06-11] MEDS: BLOOD GLUCOSE MONITORING 1 DEV DEV FS SCH ×3 (06:02→16:21)
--- NOTE | 2017-06-11 07:00 | NUR ---
PT AOX2 COOPERATIVE FOLLOW COMMANDS NOT DISTRESS NOTED ENDORSED TO DAY SHIFT NURSE MEGHAN FOR CONTINUITY OF CARE
[2017-06-11 07:08] LABS: BASOPHILS # (AUTO) 0.1 K/uL (0.00-0.22); BASOPHILS % (AUTO) 0.7 % (0.0-2.0); EOSINOPHILS # (AUTO) 0.3 K/uL (0-0.4); EOSINOPHILS % (AUTO) 3.7 % (0.0-4.0); HEMATOCRIT 32.5 % (36-52); HEMOGLOBIN 10.9 g/dL (12.0-18.0); LYMPHOCYTES # (AUTO) 1.3 K/uL (2.0-11.5); LYMPHOCYTES % (AUTO) 18.6 % (20.5-51.1); MEAN CORPUSCULAR HEMOGLOBIN 32 pg (27-31); MEAN CORPUSCULAR HGB CONC 34 g/dL (33-37); MEAN CORPUSCULAR VOLUME 95 fL (80-94); MONOCYTES # (AUTO) 0.5 K/uL (0.8-1.0); MONOCYTES % (AUTO) 7.3 % (1.7-9.3); NEUTROPHILS % (AUTO) 69.7 % (42.2-75.2); PLATELET COUNT (AUTO) 263 K/uL (140-450); RED BLOOD CELL COUNT(AUTO) 3.42 MIL/uL (4.20-6.10); RED CELL DISTRIBUTION WIDTH 13.8 % (11.6-13.7); WHITE BLOOD COUNT (AUTO) 7.2 K/uL (4.8-10.8)
--- NOTE | 2017-06-11 07:20 | NUR ---
ASSUMED CONTINUITY OF CARE. NO SIGNS AND SYMPTOMS OF ACUTE DISTRESS NOTICED. INITIAL ASSESSMENT DONE. RE-ORIENTED TO EVENTS AND SURROUNDINGS. HOB ELEVATED. EXPLAINED DIAGNOSIS, PLAN OF CARE, PAIN MANAGEMENT TEACHING, CONTACT ISOLATION PRECAUTION, USE OF CALL LIGHT/BED/TV/BATHROOM. VERBALIZED UNDERSTANDING. FALL PRECAUTION AND CONTACT ISOLATION PRECAUTION APPLIED. CALL LIGHT WITHIN REACH.
[2017-06-11 07:46] LABS: ANION GAP 15.3 (8-16); CARBON DIOXIDE 29.9 mmol/L (21-32); CHLORIDE 103 mmol/L (98-107); GLUCOSE 102 mg/dL (74-106); POTASSIUM 4.2 mmol/L (3.5-5.1); SODIUM SERUM 144 mmol/L (136-145); UREA NITROGEN, BLOOD 33 mg/dL (7-18)
[2017-06-11 07:51] LABS: CREATININE 7.2 mg/dL (0.7-1.3)
[2017-06-11 07:56] LABS: PHOSPHORUS 4.3 mg/dL (2.5-4.9)
[2017-06-11 08:00] VITALS: BP 124/55
--- NOTE | 2017-06-11 08:00 | NUR ---
Patient's Plan of Care was discussed and reviewed with PLANT ENGINEERING MANAGER: STANTON, WILL CONTINUE WITH CURRENT PLAN OF CARE
[2017-06-11] MEDS: TAMSULOSIN 0.4 MG CAP PO SCH (08:37)
[2017-06-11] MEDS: CHOLECALCIFEROL 1,000 IU TAB GT SCH (08:37)
[2017-06-11] MEDS: FOLIC ACID 1 MG TAB PO SCH (08:38)
[2017-06-11] MEDS: DOCUSATE SODIUM 100 MG GELCAP PO SCH (08:38)
[2017-06-11] MEDS: VIT-B COMP/VIT-C/FOLIC ACID 1 TAB GT SCH (08:38)
--- NOTE | 2017-06-11 11:15 | NUR ---
I attempted to contact Patient's sister Sarah Champion at to discuss and confirm patient's information. No response and I left a voice mail MGS requesting a call back.
--- NOTE | 2017-06-11 11:28 | NUR ---
COMPUTER EDUCATION TEACHER WENT INSIDE PT. ROOM AND SPOKE TO PT..
--- NOTE | 2017-06-11 11:43 | NUR ---
DR. VOGT CAME, REVIEWED PT. CHART, SEEN PT., AND INFORMED OF LATEST CREAT 7.2.
[2017-06-11 12:00] VITALS: BP 97/55
--- NOTE | 2017-06-11 14:01 | NUR ---
RECEIVED ORDER FOR DISCHARGE. FAXED PACKET TO [facility].
--- NOTE | 2017-06-11 14:41 | NUR ---
[facility]ED [facility] AND SPOKE WITH [place] IN ADMISSIONS. THE PATIENT CAN GO TO ROOM 109B UNDER DR. Bree THORNTON [phone]. CALLED [facility] AND SET UP WC TRANSPORT FOR 6:30P.Anastacio ELLISON RN CHARGE NURSE AWARE.
--- NOTE | 2017-06-11 14:57 | NUR ---
CALLED PT. SISTER -MATTHEW PANIAGUA AT AND INFORMED OF PT. TRANSFER TO [facility] IN [place] WITH ROOM 109-B. PT. SISTER -MATTHEW VERBALIZED UNDERSTANDING. ASKED PT. -MATTHEW FOR ANY QUESTION OR CONCERN REGARDING PT. TRANSFER. NO QUESTION OR CONCERN RECEIVED.
--- NOTE | 2017-06-11 15:05 | NUR ---
CALLED [facility] AT AND SPOKE TO MALAIKA PINO REGARDING PT. TRANSFER. ALSO REPORT GIVEN TO MALAIKA PINO ABOUT FOLLOW-UP WITH FRANCISCO DANGELO FOR MRI LEFT SHOULDER ON 2017 WITH PHONE NUMBER .
[2017-06-11 16:00] VITALS: BP 111/64
--- NOTE | 2017-06-11 19:14 | NUR ---
BEDSIDE REPORT GIVEN TO ROSEMARIE DURANT. IN STABLE CONDITION. ALSO ENDORSED ABOUT PT. TRANSFER TO [facility].
--- NOTE | 2017-06-11 19:30 | NUR ---
RECEIVED REPORT FROM AM NURSE. PT AWAKE, COOPERATIVE, ABLE TO FOLLOW COMMANDS, PT REPORTS BEING ABLE TO SIT UP AND SIT ON A CHAIR WITH ASSIST. MICHAEL NOTED. R ANA [place] CATH NOTED. IV ACCESS ASYMPTOMATIC, PATENT AND INTACT, SALINE LOCKED. DISCUSSED THAT PT IS PEND[facility] TRANSF[facility], ROOM 109B, WAITING FOR AMBULANCE RELIABILITY TECHNICIANS. PT STATED OK. ALL NEEDS MET. SAFETY MEASURES ENSURED. CALL LIGHT WITHIN REACH.
[2017-06-11 20:00] VITALS: BP 112/68
--- NOTE | 2017-06-11 20:05 | NUR ---
DISCHARGE INSTRUCTIONS ALREADY GIVEN BY AM NURSE, PT BELONGINGS CHECKED AND COLLECTED. ID BAND REMOVED. IV ACCESS REMOVED, CANNULA INTACT, PT TOLERATED WELL. REPORT GIVEN TO [facility]. PT IS BEING DISCHARGED TO [facility], ROOM 109B. PT DISCHARGED WITH WHEELCHAIR ACCOMPANIED BY [facility] AT THIS TIME.
== END 2017-06-11 20:05 | disposition home or self-care (01) | DRG 606 ==
LOC: MED 17:50 → MTU 21:17 → UNDOADMIN 21:17
PROVIDERS: ADMIT Family Medicine Sports Medicine; ATTEND Family Medicine Sports Medicine
PROC: 5A1D70Z Performance of Urinary Filtration, Intermittent, Less than 6 Hours Per Day (ICD-10-PCS; principal; 2017-06-10)
DX: R22.32 Localized swelling, mass and lump, left upper limb (principal); N17.0 Acute kidney failure with tubular necrosis; D68.59 Other primary thrombophilia; E11.22 Type 2 diabetes mellitus with diabetic chronic kidney disease; E87.8 Other disorders of electrolyte and fluid balance, not elsewhere classified; I13.11 Hypertensive heart and chronic kidney disease without heart failure, with stage 5 chronic kidney disease, or end stage renal disease; G20 Parkinson's disease; N18.6 End stage renal disease; I44.1 Atrioventricular block, second degree; Z99.2 Dependence on renal dialysis; E78.5 Hyperlipidemia, unspecified; D64.9 Anemia, unspecified; K21.9 Gastro-esophageal reflux disease without esophagitis; F02.80 Dementia in other diseases classified elsewhere, unspecified severity, without behavioral disturbance, psychotic disturbance, mood disturbance, and anxiety; I25.10 Atherosclerotic heart disease of native coronary artery without angina pectoris; N40.0 Benign prostatic hyperplasia without lower urinary tract symptoms; F32.9 Major depressive disorder, single episode, unspecified; G30.9 Alzheimer's disease, unspecified; Z74.01 Bed confinement status; Z93.1 Gastrostomy status
CPT/HCPCS: 36415; 71045; 73030; 73200; 76536; 80048; 80053; 82948; 83036; 83690; 83735; 83880; 84100; 84439; 84443; 84484; 85025; 85610; 85730; 87081; 93005; 99285; J1815; J2405; J3490; J7030; J8597; Q0092

== ENCOUNTER 2017-12-01 10:49 | Inpatient (IN) | payer OTHER, MEDICAID ==
[~2017-12-01] VITALS: Ht 167.6 cm; Wt 68.0 kg
[~2017-12-01 10:49] MED LIST changes: -BACTO TP; -CHLO118S2 TP; +DOCU-299 PO; +DONE10TA10 PO; -FOLI1TAB19 PO; +FOLI1TAB89 PO
--- NOTE | 2017-12-01 10:52 | NUR ---
PT IRASEMA ZURITA, CURRENTLY WAITING FOR BED
--- NOTE | 2017-12-01 11:05 | NUR ---
PT TAKEN TO BED 5 BY EMS CREW
[2017-12-01 11:06] VITALS: BP 109/40
--- NOTE | 2017-12-01 11:15 | NUR ---
72 YO [facility] under pt to be evaluated in ER for ABNORMAL LAB VALUES AND GENERALIZED WEAKNESS HGB 7.9/ HCT 24.9. RLL WITH DIMINISHED BREATH SOUNDS. BS AVTIVE X4. ABD SOFT, NON TENDER. PT WITH G TUBE. JAIME CATHETER AT R SUBCLAVIAN. BILATERAL SHUNTS. + THRILL, MIN KAYDEN. WILL CONTINUE TO MONITOR, ER MADE AWARE hx---ESRD Troy cath right chest (MATTHEW GUERRERO,LEON) , DM, HTN, Alzheimer's, parkinson's, dementia, rx----
[2017-12-01] MEDS ORDERED: ZINC220C12 GT (11:29)
[2017-12-01] MEDS ORDERED: FERR-252 GT (11:29)
[2017-12-01] MEDS ORDERED: VITC500 GT (11:29)
[2017-12-01] MEDS ORDERED: APID SUBQ (11:38)
[2017-12-01] MEDS ORDERED: BACL10TA4 GT (11:38)
[2017-12-01] MEDS ORDERED: IBUP-1842 GT (11:38)
[2017-12-01] MEDS ORDERED: NACL 0.9% 250 ML IV ONE (11:50)
[2017-12-01] MEDS ORDERED: METOCLOPRAMIDE 10 MG/2 ML INJ VIAL IVP ONE (11:50)
--- NOTE | 2017-12-01 12:18 | NUR ---
XRAY AT BEDSIDE
--- NOTE | 2017-12-01 12:35 | NUR ---
LAB AT BEDSIDE.
[2017-12-01 13:24] LABS: BASOPHILS % (AUTO) 0.2 % (0.0-2.0); EOSINOPHILS # (AUTO) 0.2 K/uL (0-0.4); EOSINOPHILS % (AUTO) 2.4 % (0.0-4.0); HEMATOCRIT 25.6 % (36-52); HEMOGLOBIN 8.5 g/dL (12.0-18.0); LYMPHOCYTES # (AUTO) 0.9 K/uL (2.0-11.5); LYMPHOCYTES % (AUTO) 9.4 % (20.5-51.1); MEAN CORPUSCULAR HEMOGLOBIN 34 pg (27-31); MEAN CORPUSCULAR HGB CONC 33 g/dL (33-37); MEAN CORPUSCULAR VOLUME 100.6 fL (80-94); MONOCYTES # (AUTO) 0.6 K/uL (0.8-1.0); MONOCYTES % (AUTO) 6.3 % (1.7-9.3); NEUTROPHILS # (AUTO) 7.5 K/uL (1.8-7.7); NEUTROPHILS % (AUTO) 81.7 % (42.2-75.2); PLATELET COUNT (AUTO) 204 K/uL (140-450); RED BLOOD CELL COUNT(AUTO) 2.55 MIL/uL (4.20-6.10); RED CELL DISTRIBUTION WIDTH 13.8 % (11.6-13.7); WHITE BLOOD COUNT (AUTO) 9.1 K/uL (4.8-10.8)
[2017-12-01 13:55] LABS: PROTHROMBIN TIME 10.6 secs (10.8-13.4)
[2017-12-01 13:59] LABS: ALBUMIN 3.5 g/dL (3.4-5.0); ANION GAP 11.1 (8-16); ASPARTATE AMINOTRANSFERASE 16 U/L (15-37); CARBON DIOXIDE 26.4 mmol/L (21-32); CHLORIDE 94 mmol/L (98-107); GLUCOSE 159 mg/dL (74-106); POTASSIUM 3.5 mmol/L (3.5-5.1); SODIUM SERUM 128 mmol/L (136-145); UREA NITROGEN, BLOOD 67 mg/dL (7-18)
[2017-12-01 14:00] LABS: CREATININE 5.6 mg/dL (0.7-1.3)
[2017-12-01 14:13] LABS: TOTAL BILIRUBIN 0.3 mg/dL (0.0-1.0)
--- NOTE | 2017-12-01 14:36 | NUR ---
PT IS APPEARS TO BE SLEEPING IN NO APPEARENT DISTRESS, WILL CONTINUE TO MONITOR. RR EVEN AND UNLABORED
--- NOTE | 2017-12-01 15:58 | NUR ---
PT TO CT VIA MARY IN STABLE CONDITION WITH POWER TOOL REPAIR TECHNICIAN
[2017-12-01] MEDS ORDERED: NACL 0.9% 1,000 ML IV SCH ×2 (16:08→18:49)
[2017-12-01] MEDS ORDERED: HYDROcodone/APAP 7.5/325 MG 1 TAB PO PRN ×2 (16:10→18:50)
[2017-12-01] MEDS ORDERED: DOCUSATE SODIUM 100 MG GELCAP PO PRN ×2 (16:10→18:50)
[2017-12-01] MEDS ORDERED: ONDANSETRON 4 MG/2 ML VIAL IM/IVP PRN (16:10)
[2017-12-01] MEDS ORDERED: ACETAMINOPHEN 325 MG TAB PO PRN ×2 (16:10→18:50)
--- NOTE | 2017-12-01 16:16 | NUR ---
PT BACK FROM CT
--- NOTE | 2017-12-01 16:54 | NUR ---
Patient will be admitted to care of DR ROGERS. Admited to TELE. Will go to room 120A. Belongings list completed. Report to YOSEF MILAN .
[2017-12-01 17:30] LABS: CHOL/HDL RATIO 3.5 (1-4.5); FREE T4 (FREE THYROXINE) 0.96 ng/dL (0.76-1.46); MAGNESIUM 2.1 mg/dL (1.8-2.4); PHOSPHORUS 2.6 mg/dL (2.5-4.9); THYROID STIMULATING HORMONE 1.02 uIU/mL (0.34-3.74)
[2017-12-01] MEDS ORDERED: ASPI81CT89 PO (17:30)
[2017-12-01] MEDS ORDERED: MECLIZINE 25 MG TAB GT PRN (18:00)
--- NOTE | 2017-12-01 18:00 | NUR ---
PT ARRIVED TO THE MED SURGERY UNIT ON 1714. RECEIVED REPORT FROM THE ER NURSE AT THE BED SIDE. GLASSWARE VERIFIER ON THE , RR ROOM. PT DROWSY, LOOKS SLEEPY. HARD TO COMMUNICATE WIT PATIENT HE BARELY SPEAKS. VS OBTAINED BP 116 , HR 72, O2 100% RA, T 96.6. PT AV SHUNT ON BOTH HAND, AL;SO HAS THE JOHANNY CATHETER FOR DIALYSIS. BP TO TAKE FROM LOWER PART OF THE HAND. JOHANNY CATHERE ON RT SIDE IN IJ. PT HAS IV ACCESS ON LFT HAND FA 22 G. DOCTOR RECTAL EXAM FOR LOW HEMOGLOBIN. PT HAS PRESSURE ULCER ON THE LEFT HEEL,PICTURES TAKEN AT THE ER. HAS REDNESS ON THE SACRAL AREA. COULDN'T OBTAIN HX FROM THE PT PT IS SLEEPING AND COULD NOT AWAKE , TRIED SEVERAL TIMES. NO DISTRESS NOTED. BED AT LOWER POSITION, RAISED HOB BY 30 DEGREE. PT SLEEPING.RADIOLOGY CALLED FOR CT OF ABDOMEN AND PELVIS WITHOUT CONTRAST,NOTIFIED THAT PT IN DEEP SLEEP, HARD TO AWAKE. WILL TRY LATER. DR RODRIGUEZ STATES TO ORDER NS @60 ML/HR AND SODIUM TABLET IN A BIT. WILLCONTINUE TO MONITOR PT.
[2017-12-01 19:30] VITALS: BP 102/36
--- NOTE | 2017-12-01 19:30 | NUR ---
RECEIVED REPORT FROM DAY SHIFT NURSE. PT IN BED WITH EYES CLOSED, NON AROUSABLE. RESIDENT MDS CHECKED PT. VITAL SIGNS WNL. PER RESIDENTS, PT IN STABLE CONDITION. IV TO LEFT HAND #22G, PATENT AND INTACT. JOHANNY CATH TO RIGHT UPPER CHEST. AV FISTULA TO BUE. SAFETY PRECAUTION IN PLACE. WILL CONTINUE TO MONITOR.
[2017-12-01] MEDS ORDERED: ALBUTEROL SULFATE/IPRATROPIU 3 ML SOL IH PRN (19:50)
[2017-12-01 20:00] VITALS: BP 125/47
[2017-12-01] MEDS ORDERED: DEXT 5% / NACL 0.45% 1,000 ML IV SCH (20:00)
--- NOTE | 2017-12-01 20:00 | NUR ---
PT AWAKE AND ALERT. PT WAS ASKED IF HE'S OKAY. PT ANSWERED "YES". PT CAN ANSWER QUESTIONS WITH YES OR NO. VS TAKEN. NO DISTRESS NOTED.
[2017-12-01] MEDS ORDERED: BACLOFEN 10 MG TAB GT SCH (21:00)
[2017-12-01] MEDS: FLUTICASONE NASAL 50 MCG/ACTUATION 16 GM BTL NS SCH (21:00)
[2017-12-01] MEDS: SIMVASTATIN 10 MG TAB GT SCH (21:33)
[2017-12-01] MEDS: DONEPEZIL 10 MG TAB GT SCH (21:33)
--- NOTE | 2017-12-01 21:56 | NUR ---
CHECKED GT RESIDUAL >200 ML. RESIDENTS MDS MADE AWARE. DR. RAMIREZ ORDERED TO HOLD THE GT FEEDING TONIGHT.
--- NOTE | 2017-12-01 23:05 | NUR ---
EXCESSIVE MOUTH SECRETION NOTED. PT ABLE TO SPIT IT OUT. PT WAS CLEANED AND CHANGED. NO DISTRESS NOTED.
[2017-12-02] VITALS (7 sets, daily range): BP systolic 101–135; BP diastolic 48–62
--- NOTE | 2017-12-02 00:15 | NUR ---
PT PULLED OUT HIS IV LINE. REINSERTED IV TO LEFT HAND #24G. GOOD FLUSH AND BLOOD RETURN. PT TOLERATED PROCEDURE WELL.
--- NOTE | 2017-12-02 00:30 | NUR ---
PT LEFT THE UNIT WITH MED CARE MANAGER AND NEPTUNE SUP FOR CT ABDOMEN/PELVIS W/O CONTRAST. PT IN STABLE CONDITION.
--- NOTE | 2017-12-02 00:55 | NUR ---
PT CAME BACK FROM CT. NO DISTRESS NOTED.
--- NOTE | 2017-12-02 03:31 | NUR ---
PT SLEEPING BUT AROUSABLE. NO S/S OF RESP DISTRESS. NO S/S OF PAIN. SAFETY PRECAUTION IN PLACE.
--- NOTE | 2017-12-02 05:10 | NUR ---
PT WAS CLEANED AND CHANGED. REPOSITIONED PT. PT SPIT OUT EXCESSIVE SECRETIONS. NO DISTRESS NOTED.
[2017-12-02] MEDS: LANSOPRAZOLE 30 MG CAPDR GT SCH (05:45)
[2017-12-02 06:13] LABS: BASOPHILS % (AUTO) 0.3 % (0.0-2.0); EOSINOPHILS # (AUTO) 0.1 K/uL (0-0.4); EOSINOPHILS % (AUTO) 0.8 % (0.0-4.0); HEMATOCRIT 23.4 % (36-52); HEMOGLOBIN 7.9 g/dL (12.0-18.0); LYMPHOCYTES # (AUTO) 0.5 K/uL (2.0-11.5); LYMPHOCYTES % (AUTO) 5.4 % (20.5-51.1); MEAN CORPUSCULAR HEMOGLOBIN 34 pg (27-31); MEAN CORPUSCULAR HGB CONC 34 g/dL (33-37); MEAN CORPUSCULAR VOLUME 100.9 fL (80-94); MONOCYTES # (AUTO) 0.5 K/uL (0.8-1.0); MONOCYTES % (AUTO) 4.8 % (1.7-9.3); NEUTROPHILS # (AUTO) 8.5 K/uL (1.8-7.7); NEUTROPHILS % (AUTO) 88.7 % (42.2-75.2); PLATELET COUNT (AUTO) 220 K/uL (140-450); RED BLOOD CELL COUNT(AUTO) 2.32 MIL/uL (4.20-6.10); RED CELL DISTRIBUTION WIDTH 13.3 % (11.6-13.7); WHITE BLOOD COUNT (AUTO) 9.6 K/uL (4.8-10.8)
[2017-12-02 06:21] LABS: T4 (THYROXINE) 6.8 ug/dL (4.5-12.0)
[2017-12-02] MEDS ORDERED: ALGINATE DRESSING MC PRN (06:35)
[2017-12-02] MEDS ORDERED: NACL 0.9% IRR 250 ML BOTTLE IR SCH (06:35)
[2017-12-02 06:38] LABS: ANION GAP 18.7 (8-16); CARBON DIOXIDE 25.8 mmol/L (21-32); CHLORIDE 97 mmol/L (98-107); GLUCOSE 156 mg/dL (74-106); POTASSIUM 3.5 mmol/L (3.5-5.1); SODIUM SERUM 138 mmol/L (136-145)
[2017-12-02 06:43] LABS: MAGNESIUM 2.5 mg/dL (1.8-2.4); PHOSPHORUS 4.4 mg/dL (2.5-4.9)
--- NOTE | 2017-12-02 06:49 | NUR ---
DR. RODRIGUEZ ORDERED STRAIGHT CATH FOR UA AND URINE CULTURE. STRAIGHT CATH PERFORMED. COLLECTED LESS THAN 1ML CLOUDY URINE. SENT TO LAB. PER LAN ENGINEER, URINE SPECIMEN NOT ENOUGH FOR UA AND URINE CULTURE. DR. RODRIGUEZ MADE AWARE.
--- NOTE | 2017-12-02 06:51 | NUR ---
RECEIVED CRITICAL LAB VALUE BUN 74, CREA 6.7. REPORTED RESULT TO DR. RODRIGUEZ. PT WILL DO DIALYSIS TODAY.
[2017-12-02 06:53] LABS: UREA NITROGEN, BLOOD 74 mg/dL (7-18)
[2017-12-02 06:54] LABS: CREATININE 6.7 mg/dL (0.7-1.3)
--- NOTE | 2017-12-02 07:00 | NUR ---
CALLED [facility], SPOKE WITH SULLY AND GAVE HER A HEADS UP FOR PT'S HEMODIALYSIS SCHED TODAY.
[2017-12-02 07:06] LABS: OPIATE, URINE NEG. ng/mL (NEG <=2000)
--- NOTE | 2017-12-02 07:20 | NUR ---
ENDORSED PT TO DAY SHIFT NURSE. PT IN STABLE CONDITION.
--- NOTE | 2017-12-02 07:21 | NUR ---
RECEIVED REPORT FROM AUTOMOTIVE CENTER MANAGER NURSE AT BEDSIDE FOR CONTINUITY OF CARE. PT IS AWAKE AND ALERT, DOES NOT SPEAK ITALIAN, HAS BURSTS OF ARMENIAN. RESPIRATIONS EVEN AND UNLABORED ON ROOM AIR. PATIENT DENIES PAIN. IV TO LEFT HAND #22G, PATENT AND INTACT INFUSING IVF WELL. JOHANNY CATH TO RIGHT UPPER CHEST. AV FISTULA TO BUE. PATIENT HAS GTUBE, CURRENTLY CLAMPED. UPDATED BOARD. SAFETY PRECAUTION IN PLACE. CALL LIGHT WITHIN REACH. BED IN LOWEST POSITION, BED ALARM ON. WILL CONTINUE TO MONITOR.
[2017-12-02 07:33] LABS: BARBITURATE, URINE NEG. ng/ml (NEG <=200); BENZODIAZEPINE, URINE NEG. ng/mL (NEG <=200); CANNABINOID, URINE NEG. ng/mL (NEG <=50); COCAINE, URINE NEG. ng/mL (NEG <=300); PHENCYCLIDINE SCREEN,URINE NEG. ng/mL (NEG <=25)
[2017-12-02] MEDS: ONDANSETRON 4 MG/2 ML VIAL IM/IVP PRN ×2 (08:42→22:01)
--- NOTE | 2017-12-02 08:42 | NUR ---
IVPB ANTIBIOTICS GIVEN. PATIENT TOLERATING IT WELL. NO SIGNS OF DISTRESS OR REACTION NOTED. RESPIRATIONS EVEN AND UNLABORED ON ROOM AIR. PATIENT DENIES PAIN BY STATING "NO" WHEN ASKED "TIENE DOLOR?". SAFETY PRECAUTION IN PLACE, CALL LIGHT WITHIN REACH. WILL CONTINUE TO MONITOR PATIENT.
--- NOTE | 2017-12-02 08:43 | NUR ---
PATIENT HAS BEEN SCREENED AND CATEGORIZED HIGH NUTRITION RISK. PATIENT WILL BE SEEN WITHIN 1-2 DAYS OF ADMISSION. 12/02/17 12/03/[address]
[2017-12-02] MEDS ORDERED: SODIUM CHLORIDE 1 GM TAB PO SCH (09:00)
[2017-12-02] MEDS ORDERED: PANTOPRAZOLE 40 MG TABEC PO SCH (09:00)
[2017-12-02] MEDS: FLUTICASONE NASAL 50 MCG/ACTUATION 16 GM BTL NS SCH ×2 (09:18→21:07)
--- NOTE | 2017-12-02 09:18 | NUR ---
ORDERED MEDICATIONS GIVEN THROUGH PATIENT'S GTUBE. GTUBE ASCULTATED FOR PATENCY, GTUBE PATENT, 40 ML RESIDUAL NOTED. ORDERED MEDICATIONS GIVEN AND FLUSHED WITH A TOTAL OF 90 ML OF WATER. PATIENT TOLERATING IT WELL. PATIENT COUGHING AND HAS PHLEGM. PATIENT SUCTIONED. MINIMAL SECRETIONS NOTED. WILL CONTINUE TO MONITOR PATIENT.
[2017-12-02] MEDS: NACL 0.9% 1,000 ML IV SCH (09:20)
[2017-12-02] MEDS: ASPIRIN 81 MG TAB.CHEW PO SCH (09:21)
[2017-12-02] MEDS: TAMSULOSIN 0.4 MG CAP PO SCH (09:21)
--- NOTE | 2017-12-02 10:45 | NUR ---
TRIED CONTACTING PATIENT'S SISTER MATTHEW PANIAGUA AT [phone], NO ANSWER, VOICEMAIL BOX FULL. TRIED CALLING THREE TIMES. TRIED CALLING WORK PHONE, NO ANSWER. TRIED SPNMAE-GY-ANB, NO ANSWER. CONSENT FOR HEMODIALYSIS SIGNED BY DOCTORS.
--- NOTE | 2017-12-02 11:20 | NUR ---
INFORMED DR. RODRIGUEZ ABOUT PATIENT'S TELEMETRY READING OF SB OF 57 WITH 2ND DEGREE AV MOBITZ I. PATIENT ASYMPTOMATIC. DR. RODRIGUEZ ORDERED TO RAISE HEAD OF BED TO 30 DEGREES.
[2017-12-02] MEDS ORDERED: LORazepam 2 MG/ML VIAL IM/IVP SCH (11:34)
[2017-12-02 12:30] LABS: FOLIC ACID > 20.00 ng/mL (>3.0)
[2017-12-02] MEDS: HYDRAGUARD CREAM TP SCH (13:00)
[2017-12-02] MEDS: CHLORHEXADINE GLUC 2% CLOTH TP SCH (13:00)
--- NOTE | 2017-12-02 14:20 | NUR ---
DIALYSIS FINISHED. 1L OF FLUID REMOVED FROM PATIENT. PATIENT TOLERATED IT WELL. NO SIGNS OF DISTRESS OR SOB NOTED ON ROOM AIR. SAFETY AND ISOLATION PRECAUTION IN PLACE, CALL LIGHT WITHIN REACH, WILL CONTINUE TO MONITOR PATIENT.
--- NOTE | 2017-12-02 14:30 | NUR ---
TUBE FEEDING STARTED AT 10ML/HR ORDERED. GTUBE ASCULTATED FOR PLACEMENT, 40ML OF RESIDUAL NOTED. PATIENT SUCTIONED WITH MINIMAL SECRETIONS. SAFETY AND ISOLATION PRECAUTION IN PLACE, CALL LIGHT WITHIN REACH. WILL CONTINUE TO MONITOR PATIENT.
[2017-12-02] MEDS: EPOETIN ALFA 10,000 UNITS/ML VIAL SUBQ SCH (14:38)
[2017-12-02] MEDS: MUPIROCIN CA NASAL 2% 1GM TUBE NS SCH (14:38)
--- NOTE | 2017-12-02 15:34 | NUR ---
80ML OF RESIDUAL NOTED. TUBE FEEDING INCREASED TO 20ML/HR ORDERED. PATIENT SUCTIONED WITH MINIMAL SECRETIONS. SAFETY AND ISOLATION PRECAUTION IN PLACE, CALL LIGHT WITHIN REACH. WILL CONTINUE TO MONITOR PATIENT.
--- NOTE | 2017-12-02 16:40 | NUR ---
60ML OF RESIDUAL NOTED. TUBE FEEDING INCREASED TO 30ML/HR ORDERED. PATIENT SUCTIONED WITH MINIMAL SECRETIONS. SAFETY AND ISOLATION PRECAUTION IN PLACE, CALL LIGHT WITHIN REACH. WILL CONTINUE TO MONITOR PATIENT.
--- NOTE | 2017-12-02 17:52 | NUR ---
70ML OF RESIDUAL NOTED. TUBE FEEDING INCREASED TO GOAL RATE OF 40ML/HR ORDERED. PATIENT SUCTIONED WITH MINIMAL SECRETIONS. SAFETY AND ISOLATION PRECAUTION IN PLACE, CALL LIGHT WITHIN REACH. WILL CONTINUE TO MONITOR PATIENT.
--- NOTE | 2017-12-02 19:24 | NUR ---
REPORT GIVEN TO HOUSING MANAGER NURSE AT BEDSIDE FOR CONTINUITY OF CARE. PATIENT RESTING IN BED, PATIENT IN STABLE CONDITION.
--- NOTE | 2017-12-02 19:30 | NUR ---
ASSUMED CARE OF PATIENT, AWAKE, NO COMPLAINS. CALL LIGHT WITHIN REACH. HOB ELEVATED AT ALL TIMES.
--- NOTE | 2017-12-02 20:00 | NUR ---
REPOSITIONED WITH ANOTHER RN. NO COMPLAINS. NO DISTRESS. CALL LIGHT WITHIN REACH. GT FEEDING WELL, TOLERATED WELL.
--- NOTE | 2017-12-02 21:00 | NUR ---
DUE MEDS GIVEN, GT FEEDING WELL. CALL LIGHT WITHIN REACH.
[2017-12-02] MEDS: SIMVASTATIN 10 MG TAB GT SCH (21:07)
[2017-12-02] MEDS: DONEPEZIL 10 MG TAB GT SCH (21:07)
[2017-12-03] MEDS: HYDRAGUARD CREAM TP SCH ×2 (00:27→14:20)
--- NOTE | 2017-12-03 01:42 | NUR ---
REPOSITIONED. NO COMPLAINS. VITAL SIGNS STABLE. GT FEEDING WELL TOLERATED. HOB ELEVATED AT ALL TIME. CALL LIGHT WITHIN REACH.
[2017-12-03 04:20] VITALS: BP 130/77
--- NOTE | 2017-12-03 04:23 | NUR ---
VITAL SIGNS STABLE. AFEBRILE. NO COMPLAINS. CALL LIGHT WITHIN REACH.
[2017-12-03] MEDS: LANSOPRAZOLE 30 MG CAPDR GT SCH (05:49)
--- NOTE | 2017-12-03 07:19 | NUR ---
ENDORSED CARE AT BEDSIDE WITH SADIE RN, PATIENT IN STABLE CONDITION.
--- NOTE | 2017-12-03 07:20 | NUR ---
RECEIVED REPORT FROM SOLE MOLDING MACHINE OPERATOR NURSE AT BEDSIDE FOR CONTINUITY OF CARE. PT IS AWAKE AND ALERT, SPEAKS ITALIAN AND DOMINICAN. RESPIRATIONS EVEN AND UNLABORED ON ROOM AIR. PATIENT DENIES PAIN. IV TO LEFT HAND #22G, PATENT AND INTACT INFUSING IVF WELL. JOHANNY CATH TO RIGHT UPPER CHEST. AV FISTULA TO BUE. PATIENT HAS GTUBE, CURRENTLY RUNNING TUBE FEEDING. UPDATED BOARD. SAFETY AND ISOLATION PRECAUTION IN PLACE. CALL LIGHT WITHIN REACH. BED IN LOWEST POSITION, BED ALARM ON. WILL CONTINUE TO MONITOR PATIENT.
[2017-12-03 07:24] LABS: EOSINOPHILS # (AUTO) 0.1 K/uL (0-0.4); HEMATOCRIT 21.2 % (36-52); LYMPHOCYTES # (AUTO) 0.9 K/uL (2.0-11.5); RED BLOOD CELL COUNT(AUTO) 2.09 MIL/uL (4.20-6.10)
[2017-12-03 07:36] LABS: BASOPHILS % (AUTO) 0.4 % (0.0-2.0); EOSINOPHILS % (AUTO) 1.5 % (0.0-4.0); HEMOGLOBIN 7.2 g/dL (12.0-18.0); LYMPHOCYTES % (AUTO) 12.9 % (20.5-51.1); MEAN CORPUSCULAR HEMOGLOBIN 35 pg (27-31); MEAN CORPUSCULAR HGB CONC 34 g/dL (33-37); MEAN CORPUSCULAR VOLUME 101.7 fL (80-94); MONOCYTES # (AUTO) 0.5 K/uL (0.8-1.0); MONOCYTES % (AUTO) 7.3 % (1.7-9.3); NEUTROPHILS # (AUTO) 5.5 K/uL (1.8-7.7); NEUTROPHILS % (AUTO) 77.9 % (42.2-75.2); PLATELET COUNT (AUTO) 197 K/uL (140-450); RED CELL DISTRIBUTION WIDTH 13.6 % (11.6-13.7)
[2017-12-03 07:55] LABS: CARBON DIOXIDE 27.9 mmol/L (21-32); CHLORIDE 104 mmol/L (98-107); CREATININE 3.9 mg/dL (0.7-1.3); GLUCOSE 189 mg/dL (74-106); SODIUM SERUM 139 mmol/L (136-145); UREA NITROGEN, BLOOD 26 mg/dL (7-18)
[2017-12-03 08:00] VITALS: BP 147/60
[2017-12-03] MEDS: NACL 0.9% 1,000 ML IV SCH ×2 (08:20→18:45)
--- NOTE | 2017-12-03 08:50 | NUR ---
WOUND CARE EVALUATION NOTES: REASON FOR EVALUATION: LEFT HEEL ULCER SKIN ASSESSMENT DONE ON THIS 72 Y/O MALE PATIENT ADMITTED FROM [facility] TO [facility] WITH INITIAL DIAGNOSIS OF GENERAL WEAKNESS, ALOC. PAST MEDICAL HISTORY INCLUDE ESRD WITH HD, GERD, DM AND BPH. ALL ABOVE INFORMATION WAS OBTAINED FROM THE ADMISSION H&P. LABS ARE WBC 7.0, H/H 7.2/21.2, GLUCOSE 156, ALBUMIN 3.5. PATIENT IS AWAKE, ALERT, AND ABLE TO FOLLOW COMMANDS. SKIN WARM TO TOUCH, THICKENED LONG TOENAILS, NO EDEMA, NO HAIR GROWTH AND BILATERAL PEDAL PULSES PRESENT, CAPILLARY REFILLED <3 SEC. PT. NEEDS REMINDER IN TURNING. PLAN OF CARE AND PRESSURE PREVENTIVE MEASURES DISCUSSED WITH PT AND PRIMARY NURSE. PT ABLE TO VERBALIZE UNDERSTANDING. PT. ADMITTED WITH UN-STAGEABLE PRESSURE INJURY TO LEFT HEEL. INTEGUMENTARY: -GT SITE EMMY-STOMA SKIN INTACT. -IAD TO RIGHT/LEFT INNER BUTTOCKS 2X1.5 CM -LEFT HEEL PRESSURE INJURY UN-STAGEABLE, 4.5X5 CM WOUND BED 100% COVERED WITH SOFT BROWN SLOUGH, EMMY-WOUND DRY SCALY SKIN, SMALL AMOUNT SANGUINEOUS DRAINAGE, NO ODOR -RIGHT HEEL BLANCHABLE REDNESS RECOMMENDATIONS: -PODIATRY CONSULT FOR LEFT HEEL POSSIBLE DEBRIDEMENT. -APPLY BETADINE SOLUTION TO LEFT HEEL BIDWC AND LEAVE IT OPEN TO AIR -APPLY Z-GUARD TO RIGHT/LEFT INNER BOTTOCKS BIDWC AND LEAVE IT OPEN TO AIR -APPLY SKIN PREP TO RIGHT HEEL BIDWC AND COMMUNITY THEATER ACTOR -TURN AND REPOSITION PATIENT Q2H TO LEFT AND RIGHT SIDE ONLY TO OFFLOAD SACRALCOCCYX AND BILATERAL HEELS -ASSESS AND MONITOR SKIN CONDITION DURING POSITION CHANGE, PLEASE PAY ATTENTION TO SACRALCOCCYX AND HEELS -OFFLOAD BILATERAL HEELS BY PLACING PILLOWS UNDER CALVES AT ALL TIMES, UNLESS OTHERWISE CONTRAINDICATED -PRESSURE REDISTRIBUTION SURFACE THERAPY -HEEL RAISER TO LEFT HEEL AT ALL TIMES RECOMMENDATIONS DISCUSSED WITH PRIMARY RN AND DR. BLEDSOE WILL FOLLOW UP PATIENT Q 7 -10 DAYS AND PRN. PLEASE CONTACT WOUND CARE NURSE FOR ANY QUESTION OR CHANGES IN WOUND CONDITION
[2017-12-03 08:57] LABS: POTASSIUM 2.9 mmol/L (3.5-5.1)
[2017-12-03] MEDS: FLUTICASONE NASAL 50 MCG/ACTUATION 16 GM BTL NS SCH ×2 (09:31→21:25)
[2017-12-03] MEDS: TAMSULOSIN 0.4 MG CAP PO SCH (09:49)
[2017-12-03] MEDS: ASPIRIN 81 MG TAB.CHEW PO SCH (09:49)
--- NOTE | 2017-12-03 09:49 | NUR ---
GTUBE ASCULATED FOR PLACEMENT, GTUBE PATENT, 150ML OF RESIDUAL NOTED. PATIENTS MEDICATIONS CRUSHED AND ADMINISTERED THROUGH GTUBE, FLUSHED WITH 100 ML OF WATER. PATIENT TOLERATED IT WELL. NO SIGNS OF DISTRESS OR SOB NOTED ON ROOM AIR. PATIENT DENIES PAIN. SAFETY AND ISOLATION PRECAUTION IN PLACE, CALL LIGHT WITHIN REACH, WILL CONTINUE TO MONITOR PATIENT.
[2017-12-03 10:37] LABS: HEPATITIS A ANTIBODY IGM Negative (Negative); HEPATITIS B CORE AB TOTAL Positive (Negative); HEPATITIS B SURFACE ANTIBODY Reactive (.); HEPATITIS B SURFACE ANTIGEN Negative (Negative)
[2017-12-03] MEDS: SODIUM FERRIC GLUCONATE 125 MG in NACL 0.9% 100 ML IV SCH (11:00)
--- NOTE | 2017-12-03 11:04 | NUR ---
ORDERED MEDICATIONS GIVEN. PATIENT TOLERATED IT WELL. NO SIGNS OF DISTRESS OR SOB ON ROOM AIR. PATIENT SLEEPING COMFORTABLY. SAFETY AND ISOLATION PRECAUTION IN PLACE, CALL LIGHT WITHIN REACH. WILL CONTINUE TO MONITOR PATIENT.
[2017-12-03 12:00] VITALS: BP 124/54
[2017-12-03] MEDS: MUPIROCIN CA NASAL 2% 1GM TUBE NS SCH (12:28)
[2017-12-03] MEDS: CHLORHEXADINE GLUC 2% CLOTH TP SCH (12:30)
--- NOTE | 2017-12-03 12:30 | NUR ---
SPOKE TO INTERIOR DESIGN TEACHERHUNTER TAYLOR ABOUT PATIENT'S RESIDUALS FROM TUBE FEEDING. INTERIOR DESIGN TEACHER RECOMMENDED TO HOLD TUBE FEEDING FOR 2 HOURS AND THEN TO CHECK AGAIN TO SEE HOW THE RESIDUALS ARE. RN VERBALIZED UNDERSTANDING.
--- NOTE | 2017-12-03 13:04 | NUR ---
PT IS HAVING HIS ECHO DONE. DROP WIRER WITH PT. WILL CONTINUE TO MONITOR PT.
--- NOTE | 2017-12-03 13:36 | NUR ---
Manager Human Capital Note: Per Fady from [facility] , patient is on a 7 day bed hold and patient's healthcare decision maker is his Sarah Champion . 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 Addendum: 12/03/17 at 1342 by Maria Del Rosario Bright SS correction: his sister Sarah Champion , not his
[2017-12-03] MEDS: Z-GUARD PASTE TP SCH (14:20)
--- NOTE | 2017-12-03 14:47 | NUR ---
PATIENT HAD BOWEL MOVEMENT. PATIENT CLEANED, DRIED, ZGUARD APPLIED TO LEFT AND RIGHT INNER BUTTOCKS, BETADINE APPLIED TO LEFT HEEL, PIE DOUGH ROLLER, SUREPREP APPLIED TO RIGHT HEEL, JESSICA. PATIENT REPOSITIONED TO OFFLOAD PRESSURE ULCERS AND FOR COMFORT. PATIENT TOLERATED THE CHANGE WELL. NO SIGN OF DISTRESS OR SOB NOTED ON ROOM AIR. PATIENT DENIES PAIN. SAFETY AND ISOLATION PRECAUTION IN PLACE, CALL LIGHT WITHIN REACH, BED IN LOWEST POSITION, BED ALARM ON, WILL CONTINUE TO MONITOR PATIENT.
--- NOTE | 2017-12-03 14:50 | NUR ---
CHECK RESIDUALS, 80 ML. INFORMED Gary TAYLOR. SHE SAID THAT PER PATIENT'S HISTORY, HE GETS BOLUS 1 CAN OF NEPHRO 5 TIMES A DAY, AT 0700, 1000, 1300, 1600, 1900. RN VERBALIZED UNDERSTANDING AND PASSED ON THIS MESSAGE TO DR. MCLAUGHLIN.
--- NOTE | 2017-12-03 14:58 | NUR ---
Science Instructor Note: I called patient's sister Sarah Champion to confirm tentative discharge plan to [facility] , no answer, recording states voicemail is full, unable to leave message.
--- NOTE | 2017-12-03 15:12 | NUR ---
12/03/17 RD INITIAL ASSESSMENT COMPLETED PLEASE REFER TO NUTRITION ASSESSMENT UNDER CARE ACTIVITY FOR ESTIMATED NUTRITIONAL NEEDS. 1. RECOMMEND SWITCHING FROM CONTINUOUS FEEDING TO BLOUS WITH NEPRO CARB STEADY 1 CAN 5X/DAILY (AT 7AM, 10 AM, 1PM, 4PM, AND 7PM) -THIS WILL PROVIDE 1183 ML, 2125 KCAL, AND 95 GM PROTEIN, MEETING 94% OF ESTIMATED KCAL NEEDS AND 100% OF PROTEIN NEEDS. 2. RECOMMEND 150 ML WATER FLUSH Q6H. 3. RD TO FOLLOW-UP 2-3 DAYS, HIGH RISK BRANDON CRUZ, RD
[2017-12-03 16:00] VITALS: BP 133/63
--- NOTE | 2017-12-03 19:23 | NUR ---
REPORT GIVEN TO DISPATCH OFFICER NURSE AT BEDSIDE FOR CONTINUITY OF CARE. PATIENT IN STABLE CONDITION, RELAXING IN BED WATCHING TV.
--- NOTE | 2017-12-03 19:24 | NUR ---
REPORT RECEIVED FROM AM NURSE. PT IN STABLE CONDITION. AAOX2. INTRODUCED SELF TO PT AND BOARD UPDATED. IV SITE PATENT AND INTACT. SKIN WARM, DRY, AND NOT INTACT DUE TO DECUBITUS ON THE LEFT HEEL. PT HAS GTUBE THAT IS PATENT. BED LOCKED IN LOW POSITION. CALL APPIAH WITHIN REACH.
[2017-12-03 20:00] VITALS: BP 102/49
--- NOTE | 2017-12-03 21:25 | NUR ---
PM MEDS GIVEN. PT TOLERATED WELL. RESIDUAL IS 20ML. PLACEMENT OF GTUBE ASSESS THROUGH AUSCULTATION. NASAL SPRAY ALSO GIVEN.
[2017-12-03] MEDS: DONEPEZIL 10 MG TAB GT SCH (21:26)
[2017-12-03] MEDS: SIMVASTATIN 10 MG TAB GT SCH (21:26)
--- NOTE | 2017-12-03 21:50 | NUR ---
CEDRICK MOORE MD TO SEE PT FOR CARE OF PRESSURE ULCER. DRESSED THE WOUND WITH BETADINE. APPLIED XEROFORM WITH EXTRA GAUZE. WRAPPED WITH KERLIX AND TAPED UP. OFFLOADED HEEL WITH A PILLOW.
[2017-12-04] VITALS: BP 112/31
[2017-12-04] MEDS: HYDRAGUARD CREAM TP SCH ×2 (01:00→10:30)
[2017-12-04] MEDS: Z-GUARD PASTE TP SCH ×2 (01:00→10:30)
--- NOTE | 2017-12-04 01:08 | NUR ---
ZGUARD AND HYDRAGUARD NOT GIVEN DUE TO CEDRICK MOORE MD APPLYING DRESSING AT 2150.
--- NOTE | 2017-12-04 02:00 | NUR ---
FEEDING INCREASED TO 20ML/HR. PT TOLERATED WELL. RESIDUAL OF 10ML.
[2017-12-04] MEDS ORDERED: DEXTROSE 50% 50 ML SYR IVP PRN (02:40)
--- NOTE | 2017-12-04 03:30 | NUR ---
PT VS STABLE. BP SLIGHTLY DECREASED BUT IN RANGE. PT WOKE UP WHEN ATTEMPTING TO PUT ON THE BLOOD PRESSURE CUFF.
[2017-12-04 04:00] VITALS: BP 94/40
--- NOTE | 2017-12-04 05:30 | NUR ---
AM LABS WERE TAKEN. PT WAS AWAKE AND ALERT.
[2017-12-04] MEDS: LANSOPRAZOLE 30 MG CAPDR GT SCH (05:36)
[2017-12-04 06:41] LABS: BASOPHILS # (AUTO) 0.1 K/uL (0.00-0.22); BASOPHILS % (AUTO) 0.9 % (0.0-2.0); EOSINOPHILS # (AUTO) 0.3 K/uL (0-0.4); EOSINOPHILS % (AUTO) 4.5 % (0.0-4.0); HEMOGLOBIN 7.5 g/dL (12.0-18.0); LYMPHOCYTES # (AUTO) 1.2 K/uL (2.0-11.5); LYMPHOCYTES % (AUTO) 17.5 % (20.5-51.1); MEAN CORPUSCULAR HEMOGLOBIN 35 pg (27-31); MEAN CORPUSCULAR HGB CONC 34 g/dL (33-37); MEAN CORPUSCULAR VOLUME 102.2 fL (80-94); MONOCYTES # (AUTO) 0.5 K/uL (0.8-1.0); MONOCYTES % (AUTO) 7.6 % (1.7-9.3); NEUTROPHILS # (AUTO) 4.7 K/uL (1.8-7.7); NEUTROPHILS % (AUTO) 69.5 % (42.2-75.2); PLATELET COUNT (AUTO) 220 K/uL (140-450); RED BLOOD CELL COUNT(AUTO) 2.16 MIL/uL (4.20-6.10); RED CELL DISTRIBUTION WIDTH 13.5 % (11.6-13.7); WHITE BLOOD COUNT (AUTO) 6.8 K/uL (4.8-10.8)
[2017-12-04 07:00] LABS: ANION GAP 11.4 (8-16); CARBON DIOXIDE 27.8 mmol/L (21-32); CHLORIDE 107 mmol/L (98-107); GLUCOSE 143 mg/dL (74-106); POTASSIUM 3.2 mmol/L (3.5-5.1); SODIUM SERUM 143 mmol/L (136-145); UREA NITROGEN, BLOOD 41 mg/dL (7-18)
--- NOTE | 2017-12-04 07:10 | NUR ---
REPORT GIVEN TO AM SHIFT. PT IN STABLE CONDITION.
--- NOTE | 2017-12-04 07:11 | NUR ---
RECEIVED REPORT FROM WOOD BOATBUILDER NURSE AT BEDSIDE FOR CONTINUITY OF CARE. PT IS AWAKE, SPEAKS ZAMBIAN AND BULGARIAN. RESPIRATIONS EVEN AND UNLABORED ON ROOM AIR. PATIENT DENIES PAIN. IV TO LEFT HAND #22G, PATENT AND INTACT INFUSING IVF WELL. JOHANNY CATH TO RIGHT UPPER CHEST. AV FISTULA TO BUE. PATIENT HAS GTUBE, CURRENTLY RUNNING TUBE FEEDING. UPDATED BOARD. UPDATED PLAN OF CARE WITH PATIENT. PATIENT VERBALIZED UNDERSTANDING. SAFETY AND ISOLATION PRECAUTION IN PLACE. CALL LIGHT WITHIN REACH. BED IN LOWEST POSITION, BED ALARM ON. WILL CONTINUE TO MONITOR PATIENT.
[2017-12-04 07:24] LABS: CREATININE 5.4 mg/dL (0.7-1.3)
[2017-12-04] MEDS ORDERED: BLOOD GLUCOSE MONITORING 1 DEV DEV FS SCH (07:30)
[2017-12-04 08:01] VITALS: BP 155/60
--- NOTE | 2017-12-04 08:18 | NUR ---
DOCTORS IN TO SEE THE PATIENT. WILL WAIT FOR THEIR RESULTS.
[2017-12-04] MEDS: FLUTICASONE NASAL 50 MCG/ACTUATION 16 GM BTL NS SCH ×2 (09:10→22:23)
--- NOTE | 2017-12-04 09:10 | NUR ---
ORDERED MEDICATIONS GIVEN. PATIENT TOLERATING IT WELL. PATIENT STATED THAT HE HAD BOWEL MOVEMENT. PATIENT HAD BROWN SMEAR. PATIENT CLEANED AND CHANGED. PATIENT TOLERATED IT WELL. NO SIGNS OF DISTRESS OR SOB NOTED ON ROOM AIR. SAFETY AND ISOLATION PRECAUTION IN PLACE, CALL LIGHT WITHIN REACH, WILL CONTINUE TO MONITOR PATIENT.
--- NOTE | 2017-12-04 09:30 | NUR ---
CALLED TREE TRIMMING SUPERVISOR [employer], FOLLOWING UP WITH KNOWLEDGE THAT PATIENT IS GETTING DIALYSIS TODAY. THEY ARE AWARE.
[2017-12-04] MEDS: TAMSULOSIN 0.4 MG CAP PO SCH (10:00)
[2017-12-04] MEDS: ASPIRIN 81 MG TAB.CHEW PO SCH (10:00)
--- NOTE | 2017-12-04 10:00 | NUR ---
GTUBE ASCULATATED FOR PLACEMENT, GTUBE PATENT, 0 ML OF RESIDUAL NOTED. ORDERED MEDICATIONS GIVEN THROUGH GTUBE. PATIENT TOLERATING IT WELL. FLUID PUMP OPERATOR ELTINA IN TO CLEAN AND REPOSITION PATIENT. PATIENT NOW CLEAN AND DRY AND REPOSITIONED FOR COMFORT AND TO OFFLOAD PRESSURE ULCERS. TUBE FEEDING ADVANCED TO 30 ML/HR. PATIENT TOLERATING IT WELL. NO SIGNS OF DISTRESS OR SOB NOTED ON ROOM AIR. PATIENT DENIES PAIN. SAFETY AND ISOLATION PRECAUTION IN PLACE, CALL LIGHT WITHIN REACH, WILL CONTINUE TO MONITOR PATIENT.
[2017-12-04] MEDS: CHLORHEXADINE GLUC 2% CLOTH TP SCH (10:30)
[2017-12-04] MEDS: SODIUM FERRIC GLUCONATE 125 MG in NACL 0.9% 100 ML IV SCH (11:27)
--- NOTE | 2017-12-04 11:30 | NUR ---
ORDERED MEDICATION GIVEN. PATIENT TOLERATED IT WELL. BLOOD SUGAR 153, PATIENT DID NOT WANT COVERAGE AT THE MOMENT. ULTRA SOUND TECH IN WITH THE PATIENT, WILL WAIT FOR THE RESULTS.
[2017-12-04] MEDS: BLOOD GLUCOSE MONITORING 1 DEV DEV FS SCH ×3 (11:34→21:00)
--- NOTE | 2017-12-04 11:59 | NUR ---
PATIENT TRANSFERRED TO [facility]. TELE BOX REMOVED. PATIENT IN STABLE CONDITION, SLEEPING, NO SIGNS OF DISTRESS OR SOB NOTED ON ROOM AIR. PATIENT'S HR GOES SB WHEN HE SLEEPS, LOW 45. SAFETY AND ISOLATION PRECAUTION IN PLACE, CALL LIGHT WITHIN REACH, WILL CONTINUE TO MONITOR PATIENT.
--- NOTE | 2017-12-04 12:50 | NUR ---
PATIENT ON ROOM AIR, O2 SAT 100%. DENIES SOB. BREATH SOUNDS CLEAR. NO BREATHING TREATMENT ADMINISTERED, TX NOT INDICATED AT THIS TIME. NO RESPIRATORY DISTRESS NOTED. WILL CONTINUE TO MONITOR.
--- NOTE | 2017-12-04 13:43 | NUR ---
Research Kennel Supervisor Note: Social Service Note: I faxed patient's clinical information to [facility]. Per Fady from [facility] , patient can return to room 109B tomorrow, accepting physician is .
--- NOTE | 2017-12-04 14:50 | NUR ---
PATIENT HAD BOWEL MOVEMENT. PATIENT CLEANED AND CHANGED. DRESSING CHANGED AND ZGUARD REAPPLIED. PATIENT TOLERATED IT WELL. NO SIGNS OF DISTRESS OR SOB NOTED ON ROOM AIR. SAFETY AND ISOLATION PRECAUTION IN PLACE, CALL LIGHT WITHIN REACH, WILL CONTINUE TO MONITOR PATIENT.
[2017-12-04 16:00] VITALS: BP 154/94
--- NOTE | 2017-12-04 16:30 | NUR ---
BLOOD SUGAR 154, PATIENT REFUSED INSULIN. PATIENT RESTING IN BED, NO SIGNS OF DISTRESS NOTED. WILL CONTINUE TO MONITOR PATIENT.
--- NOTE | 2017-12-04 17:40 | NUR ---
HEMODIALYSIS STARTED. PATIENT IN STABLE CONDITION. NO SIGNS OF DISTRESS OR SOB NOTED ON ROOM AIR. INFORMED ELECTRICAL TECHNOLOGY INSTRUCTOR THAT PATIENT DESAT DURING APNIC EPISODES. ELECTRICAL TECHNOLOGY INSTRUCTOR WANTS PATIENT ON O2 2L NC DURING DIALYSIS. PATIENT AGREES. WILL CONTINUE TO MONITOR PATIENT.
[2017-12-04] MEDS: MUPIROCIN CA NASAL 2% 1GM TUBE NS SCH (17:50)
--- NOTE | 2017-12-04 19:24 | NUR ---
REPORT GIVEN AT BEDSIDE FOR CONTINUITY OF CARE. PATIENT STILL GETTING HEMODIALYSIS. PATIENT IN STABLE CONDITION. Addendum: 12/04/17 at 1925 by Jeremias Jeffrey RN GIVEN TO CITY MAIL CARRIER NURSE.
--- NOTE | 2017-12-04 19:27 | NUR ---
RECEIVED PT FROM SADIE RN PT AOX2 HX DEMENTIAON DIALYSIS AT THIS TIME JOHANNY CATH ON RT UPPER CHEST G TUBE FEEDING WELL TOLERATED IV ON LEFT HAND INFUSING WELL NOT DISTRESS NOTED INITIAL ASSESSMENT DONE
[2017-12-04 20:00] VITALS: BP 110/68
--- NOTE | 2017-12-04 20:40 | NUR ---
DIALYSIS END AT 2039 AND 3 LITERS OUT
--- NOTE | 2017-12-04 21:30 | NUR ---
BLOOD SUGAR TEST 171 COVERAGE QITH 2 UNITS SUB Q HUMALOG PROTOCOL REPOSITIONED D Q2H
[2017-12-04] MEDS: MEMANTINE 10 MG TAB PO SCH (22:23)
[2017-12-04] MEDS: DONEPEZIL 10 MG TAB GT SCH (22:24)
[2017-12-04] MEDS: SIMVASTATIN 10 MG TAB GT SCH (22:24)
[2017-12-04] MEDS: EPOETIN ALFA 10,000 UNITS/ML VIAL SUBQ SCH (22:29)
[2017-12-04] MEDS: INSULIN LISPRO SLIDING SCALE 100 UNITS/ML VIAL SUBQ PRN (22:31)
--- NOTE | 2017-12-05 | NUR ---
PT SLEEPING WELL NOT DISTRESS NOTED G TUBE FEEDING WELL TOLERATED IV ON LEFT HAND INFUSING WELL NOT DISTRESS NOTED
[2017-12-05] MEDS: HYDRAGUARD CREAM TP SCH ×2 (01:00→13:01)
[2017-12-05] MEDS: Z-GUARD PASTE TP SCH ×2 (01:00→13:01)
--- NOTE | 2017-12-05 04:00 | NUR ---
SPONGE BATH GIVEN LIEN CHANGED PT CLEAN REPOSITIONED Q2H , REMAIN STABLE AT THIS TIME
[2017-12-05] MEDS: BLOOD GLUCOSE MONITORING 1 DEV DEV FS SCH ×2 (05:38→11:30)
[2017-12-05] MEDS: INSULIN LISPRO SLIDING SCALE 100 UNITS/ML VIAL SUBQ PRN (05:38)
[2017-12-05] MEDS: LANSOPRAZOLE 30 MG CAPDR GT SCH (05:41)
[2017-12-05] MEDS: NACL 0.9% 1,000 ML IV SCH (05:42)
--- NOTE | 2017-12-05 05:55 | NUR ---
BLOOD SUGAR TEST 160 COVERAGE WITH 2 UNITS HUMALOG SUB Q FOLLOW PROTOCOL
[2017-12-05] MEDS ORDERED: MEMA5TAB PO (06:23)
[2017-12-05] MEDS ORDERED: CEFT1PDS IV (06:25)
--- NOTE | 2017-12-05 06:53 | NUR ---
PT ON STBLE CONDITION WILL BE ENDORSED TO DAY SHIFT NURSE FOR CONTINUITY OF CARE
[2017-12-05 07:29] LABS: BASOPHILS % (AUTO) 0.5 % (0.0-2.0); EOSINOPHILS # (AUTO) 0.3 K/uL (0-0.4); HEMATOCRIT 22.9 % (36-52); HEMOGLOBIN 7.6 g/dL (12.0-18.0); LYMPHOCYTES # (AUTO) 0.9 K/uL (2.0-11.5); LYMPHOCYTES % (AUTO) 11.8 % (20.5-51.1); MEAN CORPUSCULAR HEMOGLOBIN 34 pg (27-31); MEAN CORPUSCULAR HGB CONC 33 g/dL (33-37); MEAN CORPUSCULAR VOLUME 101.6 fL (80-94); MONOCYTES # (AUTO) 0.5 K/uL (0.8-1.0); MONOCYTES % (AUTO) 6.5 % (1.7-9.3); NEUTROPHILS # (AUTO) 6.2 K/uL (1.8-7.7); NEUTROPHILS % (AUTO) 77.2 % (42.2-75.2); PLATELET COUNT (AUTO) 253 K/uL (140-450); RED BLOOD CELL COUNT(AUTO) 2.26 MIL/uL (4.20-6.10); RED CELL DISTRIBUTION WIDTH 13.6 % (11.6-13.7)
[2017-12-05 08:00] VITALS: BP 100/42
[2017-12-05 08:06] LABS: ANION GAP 12.3 (8-16); CARBON DIOXIDE 27.7 mmol/L (21-32); CHLORIDE 107 mmol/L (98-107); CREATININE 3.1 mg/dL (0.7-1.3); GLUCOSE 172 mg/dL (74-106); SODIUM SERUM 144 mmol/L (136-145); UREA NITROGEN, BLOOD 21 mg/dL (7-18)
[2017-12-05] MEDS ORDERED: LACT10CA1 PO (08:14)
[2017-12-05] MEDS: MEMANTINE 10 MG TAB PO SCH (08:54)
[2017-12-05] MEDS: TAMSULOSIN 0.4 MG CAP PO SCH (08:54)
[2017-12-05] MEDS: ASPIRIN 81 MG TAB.CHEW PO SCH (08:54)
[2017-12-05] MEDS: FLUTICASONE NASAL 50 MCG/ACTUATION 16 GM BTL NS SCH (08:54)
[2017-12-05 10:23] LABS: TRANSFERRIN 160 mg/dL (200-370)
[2017-12-05 10:26] LABS: FERRITIN 821 ng/mL (30-400)
--- NOTE | 2017-12-05 12:17 | NUR ---
[facility] TRANSPORT SCHEDULED FOR 1430 REFINERY OPERATOR POLYMERIZATION PL[employer] BY [employer] [facility] [phone].
[2017-12-05] MEDS ORDERED: POTASSIUM PHOSPHATE 15 MM in NACL 0.9% 250 ML IV SCH (13:00)
[2017-12-05] MEDS: MUPIROCIN CA NASAL 2% 1GM TUBE NS SCH (13:01)
[2017-12-05] MEDS: CHLORHEXADINE GLUC 2% CLOTH TP SCH (13:01)
--- NOTE | 2017-12-05 14:00 | NUR ---
WOUND CARE DONE, DRESSING CHANGED, PHOTO TAKEN.
--- NOTE | 2017-12-05 14:30 | NUR ---
CALLED [facility] FOR REPORT, NURSE NOT AVAILABLE NOW, WILL CALL ME BACK.
--- NOTE | 2017-12-05 15:02 | NUR ---
LEFT MESSAGE WITH PT'S SISTER MATTHEW PANIAGUA AT [phone] TO INFORM HER OF PT TRANSFER BACK TO [facility]
--- NOTE | 2017-12-05 15:20 | NUR ---
PERICARE DONE, DIAPER CHANGED, GOWN CHANGED, AWAITING PROOF INSPECTOR BY [facility].
--- NOTE | 2017-12-05 16:00 | NUR ---
REPORT CALLED TO BALBINA MILAN AT [facility].
--- NOTE | 2017-12-05 16:15 | NUR ---
[facility] HERE, REPORT GIVEN TO EMT, PT TAKEN IN [facility] TO [facility].
== END 2017-12-05 16:00 | DRG 56 ==
LOC: MED 10:49 → MTU 16:25
PROVIDERS: ADMIT General Practice; ATTEND General Practice
PROC: 5A1D70Z Performance of Urinary Filtration, Intermittent, Less than 6 Hours Per Day (ICD-10-PCS; principal; 2017-12-02)
PROC: 5A1D70Z Performance of Urinary Filtration, Intermittent, Less than 6 Hours Per Day (ICD-10-PCS; 2017-12-04)
DX: G30.9 Alzheimer's disease, unspecified (principal); G93.41 Metabolic encephalopathy; N17.0 Acute kidney failure with tubular necrosis; N18.6 End stage renal disease; E87.1 Hypo-osmolality and hyponatremia; I13.2 Hypertensive heart and chronic kidney disease with heart failure and with stage 5 chronic kidney disease, or end stage renal disease; I50.30 Unspecified diastolic (congestive) heart failure; G20 Parkinson's disease; F02.80 Dementia in other diseases classified elsewhere, unspecified severity, without behavioral disturbance, psychotic disturbance, mood disturbance, and anxiety; E11.22 Type 2 diabetes mellitus with diabetic chronic kidney disease; N30.90 Cystitis, unspecified without hematuria; E11.65 Type 2 diabetes mellitus with hyperglycemia; M62.838 Other muscle spasm; N40.0 Benign prostatic hyperplasia without lower urinary tract symptoms; E11.40 Type 2 diabetes mellitus with diabetic neuropathy, unspecified; E11.51 Type 2 diabetes mellitus with diabetic peripheral angiopathy without gangrene; D63.1 Anemia in chronic kidney disease; J32.9 Chronic sinusitis, unspecified; E83.39 Other disorders of phosphorus metabolism; E87.6 Hypokalemia; L89.622 Pressure ulcer of left heel, stage 2; K21.9 Gastro-esophageal reflux disease without esophagitis; E78.5 Hyperlipidemia, unspecified; Z99.2 Dependence on renal dialysis; Z79.899 Other long term (current) drug therapy
CPT/HCPCS: 36415; 70450; 71045; 74018; 80048; 80053; 80305; 82140; 82150; 82272; 82607; 82728; 82746; 82948; 83036; 83540; 83605; 83690; 83735; 83880; 84100; 84436; 84439; 84443; 84479; 84484; 85025; 85045; 85610; 85730; 86704; 86706; 86708; 86709; 86803; 86886; 86900; 86901; 87040; 87081; 87340; 90935; 93005; 93880; 93925; 93970; 94640; 96374; 99285; C1758; J0696; J0885; J1644; J1815; J2060; J2405; J2765; J2916; J7030; J7060; J7620; Q0092